=== PATIENT | male | born 1955 | race American Indian/Alaskan Native ===

== ENCOUNTER 2017-11-15 07:59 | Inpatient (IN) | payer MEDICARE ==
--- NOTE | 2017-11-15 08:57 | C.PDOC ---
History Of Present Illness 62-year-old male, PMHx includes Diabetes (compliant with medication), presents to the emergency department with complaints of one-week duration of worsening right fifth toe infection. Patient is referred by Dr Manriquez for admission, and possible surgery. States "otherwise I feel fine." Patient denies trauma, increasing redness, fever, or any other associated symptoms. No prior antibiotic treatment for current symptoms. No other complaints at this time. PMD Kojo Peng MD. WORSENING R 5TH TOE INFXN X [address] MANRIQUEZ FOR ADMISSION, POSSIBLE O.R. PT DENIES TRAUMA, INCR REDNESS. NO FEVER, DENIES OTHER ASSOC SX "OTHERWISE I FEEL FINE". NO PRIOR ABX TX FOR CURRENT SX. COMPLIANT W DM MEDS EXAM NAD EXT R FOOT +SWELLING/EDEMA 5TH TOE. NO DEFORM. MIN LOCAL TEND SKIN +DFU R 5TH TOE. NAIL MISSING. REMAINDER NEG Time Seen by Provider: 11/15/17 08:28 Chief Complaint (Nursing): Lower Extremity Problem/Injury Past Medical History Reviewed: Historical Data, Nursing Documentation, Vital Signs Vital Signs: Last Vital Signs Temp 98.2 F 11/16/17 08:29 Pulse 87 11/16/17 08:29 Resp 20 11/16/17 08:29 BP 159/95 H 11/16/17 08:29 Pulse Ox 95 11/16/17 08:29 - Medical History PMH: HIV, HTN, Hypercholesterolemia Surgical History: Appendectomy, CABG Family History: States: Unknown Family Hx - Social History Hx Alcohol Use: No Hx Substance Use: No - Immunization History Hx Tetanus Toxoid Vaccination: No Hx Influenza Vaccination: No Hx Pneumococcal Vaccination: No Review Of Systems Except As Marked, All Systems Reviewed And Found Negative. Constitutional: Negative for: Fever, Chills Cardiovascular: Negative for: Chest Pain Respiratory: Negative for: Shortness of Breath Musculoskeletal: Positive for: Foot Pain Neurological: Negative for: Weakness, Numbness Physical Exam - Physical Exam Appears: Non-toxic, No Acute Distress Skin: Warm, Dry, Other ( +DFU R 5TH TOE. NAIL MISSING.) Head: Normacephalic Eye(s): bilateral: Normal Inspection, PERRL Nose: Normal Lips: Normal Appearing Neck: Normal ROM Chest: Symmetrical Cardiovascular: Rhythm Regular, No Murmur Respiratory: Normal Breath Sounds, No Accessory Muscle Use Extremity: Normal ROM Neurological/Psych: Oriented x3, Normal Speech ED Course And Treatment - Laboratory Results Result Diagrams: 11/15/17 09:25 11/15/17 09:25 O2 Sat by Pulse Oximetry: 98 Pulse Ox Interpretation: Normal - Radiology CXR: Interpreted by Me CXR Interpretation: Yes: No Acute Disease - Other Rad R FOOT X-Ray: Interpreted by Me (NEG) Progress - Re-Evaluation Re-evaluation Note: 11/15/17 09:05 D/W PODIATRY RESIDENT WILL EVAL IN ER PENDING CALLBACK PMD 11/15/17 09:30 d/w dr peng WILL ADMIT. RECOMMENDS ZOSYN 11/15/17 09:[address] PENG, ADMIT PT UNDER DR Sara COMBS. STATES ALREADY NOTIFIED DR Saar COMBS ABOUT ADMISSION. - Data Reviewed Data Reviewed: Lab, Diagnostic imaging, EKG, Old records - Continuity of Care Discussed patient case with:: Patient, PMD Discussed pt. case with [facility] consultant/specialty: Podiatry Medical Decision Making Medical Decision Making: Impression 62y/o M comes in for evaluation of worsening infection of right foot. Plan: * EKG * BMP * CBC * Chest X-Ray * Blood/Wound Culture * XR R Foot * Reassess and Disposition Disposition Counseled Patient/Family Regarding: Studies Performed, Diagnosis - Disposition Disposition: HOSPITALIZED Disposition Time: 09:31 Condition: STABLE - POA Present On Arrival: Poor Glycemic Control, Pressure Ulcer - Clinical Impression Clinical Impression: Diabetic foot ulcer, Cellulitis - Scribe Statement The provider has reviewed the documentation as recorded by the Scribe (Micheal Edmondson) All medical record entries made by the Scribe were at my direction and personally dictated by me. I have reviewed the chart and agree that the record accurately reflects my personal performance of the history, physical exam, medical decision making, and the department course for this patient. I have also personally directed, reviewed, and agree with the discharge instructions and disposition. Decision To Admit - Pt Status Changed To: Hospital Disposition Of: Inpatient - Admit Certification Admit to Inpatient:: After my assessment, the patient will require hospitalization for at least two midnights. This is because of the severity of symptoms shown, intensity of services needed, and/or the medical risk in this patient being treated as an outpatient. - InPatient: Physician Admission Certification: I certify that this patient requires 2 or more midnights of care for the following reason:: SEE NOTE - . Bed Request Type: Regular Admitting Physician: Kojo Peng Patient Diagnosis: Diabetic foot ulcer, Cellulitis
[2017-11-15 09:28] LABS: BASO # 0.1 K/uL (0.0-0.2); BASO % 0.7 % (0.0-2.0); EOS # 0.1 K/uL (0.0-0.7); EOS % 0.7 % (0.0-4.0); HEMOGLOBIN 14.6 g/dL (12.0-18.0); LYMPH # 1.5 K/uL (1.0-4.3); LYMPH % 20.8 % (20.0-40.0); MEAN CORPUSCULAR HGB CONC 35.5 g/dL (33.0-37.0); MEAN PLATELET VOLUME 7.4 fL (7.2-11.7); MONO # 0.6 K/uL (0.0-0.8); MONO % 8.1 % (0.0-10.0); NEUT # 5.1 K/uL (1.8-7.0); NEUT % 69.7 % (50.0-75.0); RBC 3.83 Mil/uL (4.40-5.90); RED CELL DISTRIBUTION WIDTH 12.5 % (11.5-14.5); WHITE BLOOD COUNT 7.3 K/uL (4.8-10.8)
[2017-11-15 09:43] LABS: BLOOD UREA NITROGEN 23 mg/dL (9-20); CALCIUM 9.9 mg/dl (8.6-10.4); GFR AFRICAN-AMERICAN > 60; GFR NON-AFRICAN AMERICAN > 60
--- NOTE | 2017-11-15 09:55 | RAD ---
HISTORY: SOB COMPARISON: No prior. TECHNIQUE: Chest PA and lateral FINDINGS: LUNGS: No active pulmonary disease. PLEURA: No significant pleural effusion identified. No pneumothorax apparent. CARDIOVASCULAR: The cardiac silhouette is normal in size. There are post sternotomy changes and surgical changes suggestive of prior cardiac bypass. OSSEOUS STRUCTURES: No significant abnormalities. VISUALIZED UPPER ABDOMEN: Normal. OTHER FINDINGS: None. IMPRESSION: No active disease.
--- NOTE | 2017-11-15 09:59 | RAD ---
PROCEDURE: Right Foot Radiographs. HISTORY: DFU R 5TH TOE COMPARISON: None. FINDINGS: BONES: There is no evidence of acute fracture. There is a old fracture and deformity at the proximal portion of the 5th metatarsal bone. JOINTS: Mild a degenerative changes. SOFT TISSUES: There is soft tissue swelling seen at the lateral aspect of the mid and distal right foot. OTHER FINDINGS: None. IMPRESSION: No evidence of acute fracture or dislocation. No evidence of bony erosion to suggest acute osteomyelitis. Soft tissue swelling. Old fracture deformity at the proximal portion of 5th metatarsal bone.
--- NOTE | 2017-11-15 12:37 | CP.PCM.CON ---
History of Present Illness - History of Present Illness History of Present Illness: Vascular surgery consult note for Dr. Maxine Martin, PGY-1 Pt S & E at bedside with attending. 62M w/PMH sig for DM consulted for non healing wound on right foot. Pt reports blister formation on 5th toe approximately a week ago, which subsequently popped. Was evaluated by PMD with recommendations for wound care. Wound is not healing, reports slight pain to area. Pt admits to having similar type of wound on hallux of right foot. Denies other symptoms/complaints. PMH: DM, hx of prostate CA PSH: CABG, appendectomy All: NKDA SH: Denies ETOH, tobacco or illicit drug use PMD: Dr. Peng Outpatient Podiatry: Dr. Manriquez Review of Systems - Review of Systems All systems: reviewed and no additional remarkable complaints except (ROS negative excluding HPI.) - Constitutional Constitutional: absent: Chills, Fatigue - Cardiovascular Cardiovascular: absent: Chest Pain - Respiratory Respiratory: absent: Cough - Gastrointestinal Gastrointestinal: absent: Abdominal Pain - Genitourinary Genitourinary: absent: Change in Urinary Stream - Musculoskeletal Musculoskeletal: absent: Back Pain - Integumentary Integumentary: Non-Healing Lesions - Neurological Neurological: absent: Numbness, Tingling Past Patient History - Past Social History Smoking Status: Never Smoked - CARDIAC Hx Hypercholesterolemia: Yes Hx Hypertension: Yes - ENDOCRINE/METABOLIC Hx Diabetes Mellitus Type 2: Yes - HEMATOLOGICAL/ONCOLOGICAL Hx Human Immunodeficiency Virus (HIV): Yes - PSYCHIATRIC Hx Substance Use: No - SURGICAL HISTORY Hx Appendectomy: Yes Hx Coronary Artery Bypass Graft: Yes Meds Allergies/Adverse Reactions: Allergies Allergy/AdvReac Type Severity Reaction Status Date / Time No Known Allergies Allergy Unverified 11/15/17 08:20 Physical Exam - Constitutional Appears: Non-toxic, No Acute Distress - Head Exam Head Exam: ATRAUMATIC, NORMAL INSPECTION, NORMOCEPHALIC - Eye Exam Eye Exam: EOMI, Normal appearance - ENT Exam ENT Exam: Mucous Membranes Moist, Normal Exam - Neck Exam Neck exam: Positive for: Full Rom, Normal Inspection - Respiratory Exam Respiratory Exam: NORMAL BREATHING PATTERN - Cardiovascular Exam Cardiovascular Exam: REGULAR RHYTHM - Extremities Exam Extremities exam: Negative for: tenderness Additional comments: Pedal pulses (DP, TP) absent bilaterally, femoral pulses palpable bilaterally, popliteal pulse absent on right lower extremity Right foot with dressing in place over foot- clean/dry/intact - Neurological Exam Neurological exam: Alert, CN II-XII Intact, Oriented x3 - Psychiatric Exam Psychiatric exam: Normal Affect, Normal Mood - Skin Skin Exam: Dry, Normal Color, Warm Results - Vital Signs Recent Vital Signs: Last Vital Signs Temp 98.5 F 11/15/17 08:20 Pulse 77 11/15/17 11:47 Resp 16 11/15/17 11:47 BP 155/85 H 11/15/17 11:47 Pulse Ox 100 11/15/17 11:47 - Labs Result Diagrams: 11/15/17 09:25 11/15/17 09:25 Labs: Laboratory Results - last 24 hr 11/15/17 11/15/17 09:25 09:25 WBC 7.3 RBC 3.83 L Hgb 14.6 Hct 41.0 MCV 107.0 H MCH 38.0 H MCHC 35.5 RDW 12.5 Plt Count 302 MPV 7.4 Neut % (Auto) 69.7 Lymph % (Auto) 20.8 [place] % (Auto) 8.1 Eos % (Auto) 0.7 Baso % (Auto) 0.7 Neut # (Auto) 5.1 Lymph # (Auto) 1.5 [place] # (Auto) 0.6 Eos # (Auto) 0.1 Baso # (Auto) 0.1 Differential Comment Sodium 143 Potassium 4.1 Chloride 102 Carbon Dioxide 30 Anion Gap 15 BUN 23 H Creatinine 1.2 Est GFR ( Amer) > 60 Est GFR (Non-Af Amer) > 60 Random Glucose 109 Calcium 9.9 Assessment & Plan - Assessment and Plan (Free Text) Assessment: 62M w/PMH sig for DM with non healing wound of right foot Plan: Duplex U/s of LE CTA Further mgmt as per primary team Further recommendations pending imaging results DW attending Veronica, PGY-1 - Date & Time Date: 11/15/17 Time: 12:38
--- NOTE | 2017-11-15 13:35 | CP.PCM.CON ---
History of Present Illness - History of Present Illness History of Present Illness: Consult note - Dr. Manriquez 62 year old male patient with PMHx of DM, prostate CA was seen and evaluated at bedside for right 5th digit wound. Patient reports that there was a blister about a week ago which popped and turned into what it looks like today. Patient reports that he has not seen any improvement in the healing process of the wound since then. Patient denies of having any recent F/N/V/C/SOB/CP/headache. Patient reports that he has a little pain to his digit today. Patient denies of any other pedal complains at this time. PMHx: DM, hx of prostate CA PSHx: CABG, appendectomy All: NKDA SHx: Denies ETOH, tobacco or illicit drug use Review of Systems - Constitutional Constitutional: As Per HPI Past Patient History - Past Social History Smoking Status: Never Smoked - CARDIAC Hx Hypercholesterolemia: Yes Hx Hypertension: Yes - ENDOCRINE/METABOLIC Hx Diabetes Mellitus Type 2: Yes - HEMATOLOGICAL/ONCOLOGICAL Hx Human Immunodeficiency Virus (HIV): Yes - PSYCHIATRIC Hx Substance Use: No - SURGICAL HISTORY Hx Appendectomy: Yes Hx Coronary Artery Bypass Graft: Yes Meds Allergies/Adverse Reactions: Allergies Allergy/AdvReac Type Severity Reaction Status Date / Time No Known Allergies Allergy Unverified 11/15/17 08:20 - Medications Medications: Current Medications Amantadine HCl (Amantadine 100 Mg Cap) 100 mg PO DAILY [facility] Amlodipine Besylate (Norvasc) 10 mg PO DAILY [facility] Aspirin (Ecotrin) 81 mg PO DAILY [facility] Ergocalciferol (Drisdol 50,000 Intl Units Cap) 1 cap PO Q7D [facility] Home Med (Home Med) 1 unit PO DAILY [facility] Insulin Aspart (Novolog) 0 unit SC ACHS [facility] PRN Reason: Protocol Losartan Potassium (Cozaar) 100 mg PO DAILY [facility] Metoprolol Tartrate (Lopressor) 50 mg PO DAILY [facility] Pantoprazole Sodium (Protonix Ec Tab) 40 mg PO DAILY [facility] Rosuvastatin Calcium (Crestor) 5 mg PO HS [facility] Physical Exam - Constitutional Appears: Well, Non-toxic, No Acute Distress - Extremities Exam Additional comments: Right LE focused exam: VASC: DP/PT pulses are palpable are non-palpable. Cap refill time appears little sluggish and is approx. 4 sec, Skin temperature warm to cool from proximal to distal. mild non-pitting edema noted at the distal aspect of the foot on the right DERM: wound on the dorsal and distal aspect of the 5th digit on the right measuring approx. the whole size of the digit, mild serous drainage accompanied with mild purulence, wound base is 50% fibrotic and 50% grannular, no tunneling , no probe to bone, no malodor, van-wound erythema noted on extending proximally to the level of MTPJ, van-wound maceration noted at the distal aspect of the digit NEURO: Epicritic and protective sensation mildly diminished ORTHO: mild tenderness on palpation of the right 5th digit - Neurological Exam Neurological exam: Alert, Oriented x3 - Psychiatric Exam Psychiatric exam: Normal Affect, Normal Mood Results - Vital Signs Recent Vital Signs: Last Vital Signs Temp 98.5 F 11/15/17 08:20 Pulse 77 11/15/17 11:47 Resp 16 11/15/17 11:47 BP 155/85 H 11/15/17 11:47 Pulse Ox 100 11/15/17 11:47 - Labs Result Diagrams: 11/15/17 09:25 11/15/17 09:25 Labs: Laboratory Results - last 24 hr 11/15/17 11/15/17 09:25 09:25 WBC 7.3 RBC 3.83 L Hgb 14.6 Hct 41.0 MCV 107.0 H MCH 38.0 H MCHC 35.5 RDW 12.5 Plt Count 302 MPV 7.4 Neut % (Auto) 69.7 Lymph % (Auto) 20.8 [place] % (Auto) 8.1 Eos % (Auto) 0.7 Baso % (Auto) 0.7 Neut # (Auto) 5.1 Lymph # (Auto) 1.5 [place] # (Auto) 0.6 Eos # (Auto) 0.1 Baso # (Auto) 0.1 Differential Comment Sodium 143 Potassium 4.1 Chloride 102 Carbon Dioxide 30 Anion Gap 15 BUN 23 H Creatinine 1.2 Est GFR ( Amer) > 60 Est GFR (Non-Af Amer) > 60 Random Glucose 109 Calcium 9.9 Assessment & Plan - Assessment and Plan (Free Text) Assessment: 62 year old male patient with PMHx of DM, prostate CA was evaluated for right 5th digit wound. Plan: Patient seen and evaluated in ED with attending Dr. Manriquez Labs, vitals and charts reviewed - afebrile, no leukocytosis X-rays of the foot ordered/reviewed - increase in soft tissue density accompanied with cortical erosion at the level of IPJ consistent with possible OM Wound cultures taken - pending ID consult - Recommendations from Dr. Peng appreciated Vascular consult - Dr. Sawant Arterial duplex ordered - pending Podiatry will hold any surgical intervention at this time and will follow vascular recommendations Wound cleaned with saline and dressing applied using Betadine, DSD Thank you for the podiatry consult and allowing to take part in patient care Podiatry to follow patient while in-house - Date & Time Date: 11/15/17 Time: 09:30
[2017-11-15] MEDS ORDERED: Iodixanol 320 mg/ml 150 ml Bottle IV ONE (14:06)
--- NOTE | 2017-11-15 15:21 | CT ---
PROCEDURE: CT Angiography Abdomen, Pelvis and Lower Extremity with Contrast HISTORY: non healing wound of right foot COMPARISON: None. TECHNIQUE: Technique: CT angiography of the abdomen, pelvis and bilateral lower extremities performed in the arterial phase of enhancement. Coronal and sagittal reformats, and well as rotating MIP images of the vessels generated at the workstation. Intravenous contrast dose: 150 mL Visipaque Radiation dose: Total exam DLP = 1812.17 mGy-cm. This CT exam was performed using one or more of the following dose reduction techniques: Automated exposure control, adjustment of the mA and/or kV according to patient size, and/or use of iterative reconstruction technique. FINDINGS: CT ANGIOGRAPHY: ABDOMINAL AORTA:: Mild diffuse atherosclerotic disease is noted without evidence of significant stenosis or aneurysmal changes. MAJOR AORTIC BRANCHES: Celiac [place]: Unremarkable. Superior mesenteric artery: Unremarkable. Inferior mesenteric artery: Unremarkable. Renal arteries: Unremarkable. PELVIC ARTERIES: Right Common Iliac: No evidence of significant stenosis. Right External Iliac: No evidence of significant stenosis. Right Internal Iliac: The right internal iliac artery is patent demonstrate moderate atherosclerotic disease P Left Common Iliac: No significant stenosis. Left External Iliac: No significant stenosis noted. Left Internal Iliac: Unremarkable. RIGHT LOWER EXTREMITY ARTERIES: Right Common Femoral: Mild atherosclerotic disease without evidence of significant stenosis Right Superficial Femoral: Moderate atherosclerotic disease associated with foci of mural thickening and foci of mild less than 50 percent stenosis at the origin and in the distal portion of the right superficial femoral artery. Right Profunda Femoris: Patent demonstrate diffuse atherosclerotic disease. Right Popliteal:Patent demonstrate [id number] atherosclerotic disease and small foci of mural thickening. Focal mild less than 50 percent stenosis noted at the midportion of the right popliteal artery. Focal approximately 50 percent stenosis seen at the distal right popliteal artery. 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 Reconstitution of the anterior tibial artery at the mid to distal right Neumann and continuous to the right foot Right Tibioperoneal Trunk: Patent demonstrate moderate atherosclerotic disease and moderate size foci of mural thickening Right Posterior Tibial: Occlusion of the right posterior tibial artery at the mid leg. Right Peroneal: Occlusion at the distal portion of the right peroneal artery. Right dorsalis pedis : The right dorsalis pedis artery seen in the proximal portion of the right foot up to the level of tarsal bones. LEFT LOWER EXTREMITY ARTERIES: Left Common Femoral: Moderate atherosclerotic disease and focal approximately 50- 60 percent stenosis noted at the proximal and mid portion of the left common femoral artery Left Superficial Femoral: Patent demonstrate [id number] atherosclerotic disease. Left Profunda Femoris: Patent demonstrate moderate atherosclerotic disease. Left Popliteal: Focal/ segmental mild approximately 50 percent stenosis at the proximal right popliteal artery. Left Anterior Tibial: Occlusion of the left anterior tibial artery shortly after its origin. Left Tibioperoneal Trunk: Demonstrates moderate to severe atherosclerotic disease and diffuse mural thickening with diffuse approximately 50 percent stenosis. Left Posterior Tibial: Focal severe approximately 70 percent stenosis at the origin of the left posterior tibial artery. Left Peronea: Focal approximately 17- 75 percent stenosis at the origin of the peroneal artery. Left Dorsalis pedis: No evidence of contrast opacification at the left dorsalis pedis NON-ANGIOGRAPHIC ASPECT OF THE EXAM: LOWER THORAX: No evidence of acute pathology. Cardiomegaly is noted. LIVER: There is 1.6 centimeter peripheral enhancing lesion at the anterior portion of right liver do may represent benign hemangioma. Heterogeneous nodular enhancement of the liver is noted. GALLBLADDER AND BILE DUCTS: Unremarkable. PANCREAS: Unremarkable. No gross lesion or ductal dilatation. SPLEEN: Unremarkable. ADRENALS: Unremarkable. No mass. KIDNEYS AND URETERS: Unremarkable. No hydronephrosis. No solid mass. STOMACH AND BOWEL: No evidence of acute pathology in the GI system. APPENDIX: No evidence of appendicitis. PERITONEUM: Unremarkable. No free fluid. No free air. LYMPH NODES: Unremarkable. No enlarged lymph nodes. BLADDER: Mildly distended urinary bladder. REPRODUCTIVE: There are multiple seeds in the [id number] enlarged prostate. Heterogeneous enhancement of the prostate is noted. BONES: No acute fracture. OTHER FINDINGS: None. IMPRESSION: Moderate atherosclerotic disease more prominent below the knees. 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 Occlusion of the right posterior tibial artery at the mid to distal leg. Foci of mild stenosis seen at the left common femoral artery bilateral superficial femoral arteries and bilateral popliteal arteries. Occlusion of the left anterior tibial artery shortly after its origin.
[2017-11-15] MEDS: (Novolog) Insulin Aspart, Recombinant 100 u/ml 10 ml vial SC SCH ×2 (16:55→22:19)
[2017-11-15] MEDS: Aztreonam 1 GM in Sodium Chloride 0.9% 100 ML IVPB SCH (18:59)
[2017-11-15] MEDS: Enoxaparin 30 mg Syringe SC SCH (22:17)
[2017-11-16] MEDS: Aztreonam 1 GM in Sodium Chloride 0.9% 100 ML IVPB SCH ×3 (01:43→17:33)
--- NOTE | 2017-11-16 02:25 | HP ---
HISTORY OF PRESENT ILLNESS: This is a 62-year-old black male came to the emergency room with history of right lateral toe infection and ulcer. Swelling present. Cellulitis present. The patient had this problem for the last one week. The patient is compliant to the medications. The patient denies having any fever or chills. No known injury to the toe. The patient was evaluated by Dr. Manriquez and was referred for admission and possible surgery. PAST MEDICAL HISTORY: History of HIV positive, hypertension, hypercholesterolemia, diabetes. The patient has appendectomy done in the past. ALLERGIES: THE PATIENT IS ALLERGIC TO PENICILLIN. MEDICATIONS: The patient's medications are reviewed by me. REVIEW OF SYSTEMS: CARDIOVASCULAR: Negative for chest pain. RESPIRATORY: Negative for shortness of breath. GI: Negative for nausea, vomiting, abdominal pain. [employer]: No focal neurological complaints offered. : No urinary complaints. EXTREMITIES: Right little toe has swelling, infection, mild discharge, and bleeding. All other systems are negative. PHYSICAL EXAMINATION: GENERAL: On admission, this is a 62-year-old black male, alert, oriented, comfortable. VITAL SIGNS: Temperature 98.5, pulse 83, respirations 16, blood pressure 163/89 mmHg, pulse ox is 98% on room air. HEENT: Normal. JVP is flat. Carotids, no bruit. LUNGS: No rales, no wheezing. HEART: S1, S2, normal. No gallop, no murmur. ABDOMEN: Soft, nontender. No organomegaly. CENTRAL NERVOUS SYSTEM: No focal neurological deficits. Right little toe has infection and swelling and mild discharge. IMPRESSION: Right foot ulcer, diabetic. Cellulitis. Human immunodeficiency virus positive. Hypertension. PLAN: The patient will be admitted to the floor. We will get consult with Dr. Peng and Dr. Manriquez, and IV antibiotic. Other workup as needed. Marcia Mccarthy MD
--- NOTE | 2017-11-16 06:01 | CP.PCM.PN ---
Subjective - Date & Time of Evaluation Date of Evaluation: 11/16/17 Time of Evaluation: 07:30 - Subjective Subjective: Vascular surgery progress note for Dr. Maxine Martin, PGY-1 Pt S & E at bedside. Pt reports minimal R foot pain. Denies N & V, F & C, other complaints. Objective - Vital Signs/Intake and Output Vital Signs (last 24 hours): Temp Pulse Resp BP Pulse Ox 98.5 F 87 20 150/88 97 11/16/17 00:00 11/16/17 00:00 11/16/17 00:00 11/16/17 00:00 11/16/17 00:00 - Medications Medications: Current Medications Amantadine HCl (Amantadine 100 Mg Cap) 100 mg PO DAILY [facility] Amlodipine Besylate (Norvasc) 10 mg PO DAILY [facility] Aspirin (Ecotrin) 81 mg PO DAILY [facility] Enoxaparin Sodium (Lovenox) 30 mg SC 1000,2200 [facility] Last Admin: 11/15/17 22:17 Dose: 30 mg Ergocalciferol (Drisdol 50,000 Intl Units Cap) 1 cap PO Q7D [facility] Home Med (Home Med) 1 unit PO DAILY [facility] Aztreonam 1 gm/ Sodium (Chloride) 100 mls @ 200 mls/hr IVPB Q8H [facility] Last Admin: 11/16/17 01:43 Dose: 200 mls/hr Clindamycin Phosphate 600 mg/ (Sodium Chloride) 54 mls @ 100 mls/hr IVPB Q8H [facility] Last Admin: 11/16/17 01:04 Dose: 100 mls/hr Insulin Aspart (Novolog) 0 unit SC ACHS [facility] PRN Reason: Protocol Last Admin: 11/15/17 22:19 Dose: Not Given Losartan Potassium (Cozaar) 100 mg PO DAILY [facility] Metoprolol Tartrate (Lopressor) 50 mg PO DAILY [facility] Pantoprazole Sodium (Protonix Ec Tab) 40 mg PO DAILY [facility] Pneumococcal Polyvalent Vaccine (Pneumovax 23 Vaccine) 0.5 ml IM .ONCE ONE Stop: 11/17/17 10:01 Rosuvastatin Calcium (Crestor) 5 mg PO HS [facility] Last Admin: 11/15/17 22:17 Dose: 5 mg - Labs Labs: 11/15/17 09:25 11/15/17 09:25 - Constitutional Appears: Non-toxic, No Acute Distress - Head Exam Head Exam: ATRAUMATIC, NORMAL INSPECTION, NORMOCEPHALIC - Eye Exam Eye Exam: EOMI, Normal appearance - ENT Exam ENT Exam: Mucous Membranes Moist, Normal Exam - Neck Exam Neck Exam: Full ROM, Normal Inspection - Respiratory Exam Respiratory Exam: NORMAL BREATHING PATTERN - Cardiovascular Exam Cardiovascular Exam: REGULAR RHYTHM - GI/Abdominal Exam GI & Abdominal Exam: Soft. absent: Tenderness - Extremities Exam Extremities Exam: absent: Normal Inspection (R foot with dressing in place- clean/dry/intact), Tenderness Additional comments: unable to appreciated popliteal pulses bilaterally - Neurological Exam Neurological Exam: Alert, Awake, CN II-XII Intact, Oriented x3 - Psychiatric Exam Psychiatric exam: Normal Affect, Normal Mood - Skin Skin Exam: Dry, Intact, Normal Color, Warm Assessment and Plan - Assessment and Plan (Free Text) Assessment: 62M w/PMH sig for DM with non healing wound of right foot Plan: FU Duplex U/S of LE CTA w/Mod atherosclerotic diz more prom below knees.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 Occlusion of R PT at mid to distal leg. Foci of mild stenosis at L [employer], B/L SFA & B/L popliteal. Occlusion of L AT shortly after origin. Further recommendations pending Duplex results Further mgmt as per primary team Will ELOY attending Veronica, PGY-1
[2017-11-16] MEDS: (Novolog) Insulin Aspart, Recombinant 100 u/ml 10 ml vial SC SCH ×4 (08:10→21:58)
[2017-11-16] MEDS: Pantoprazole 40 mg EC Tab PO SCH (10:03)
[2017-11-16] MEDS: Enoxaparin 30 mg Syringe SC SCH ×2 (10:03→21:58)
--- NOTE | 2017-11-16 13:46 | CP.PCM.PN ---
Subjective - Date & Time of Evaluation Date of Evaluation: 11/16/17 Time of Evaluation: 10:50 - Subjective Subjective: Progress note - Dr. Manriquez 62 year old male patient with PMHx of DM, prostate CA was seen and evaluated at bedside for right 5th digit wound. Patient is AAOx3 and is in NAD. Patient reports of no acute overnight events. Patient denies of having any recent F/N/V/ C/SOB/CP/headache. Patient reports that he has a little pain to his digit today. Patient denies of any other pedal complains at this time. Objective - Vital Signs/Intake and Output Vital Signs (last 24 hours): Temp Pulse Resp BP Pulse Ox 98.2 F 87 20 159/95 H 98 11/16/17 08:29 11/16/17 08:29 11/16/17 08:29 11/16/17 08:29 11/16/17 11:18 Intake and Output: 11/16/17 11/16/17 06:59 18:59 Intake Total 440 Balance 440 - Medications Medications: Current Medications Amantadine HCl (Amantadine 100 Mg Cap) 100 mg PO DAILY [facility] Last Admin: 11/16/17 11:29 Dose: 100 mg Amlodipine Besylate (Norvasc) 10 mg PO DAILY [facility] Last Admin: 11/16/17 10:03 Dose: 10 mg Aspirin (Ecotrin) 81 mg PO DAILY [facility] Last Admin: 11/16/17 10:03 Dose: 81 mg Enoxaparin Sodium (Lovenox) 30 mg SC 1000,2200 [facility] Last Admin: 11/16/17 10:03 Dose: 30 mg Ergocalciferol (Drisdol 50,000 Intl Units Cap) 1 cap PO Q7D [facility] Home Med (Home Med) 1 unit PO DAILY [facility] Aztreonam 1 gm/ Sodium (Chloride) 100 mls @ 200 mls/hr IVPB Q8H [facility] Last Admin: 11/16/17 10:03 Dose: 200 mls/hr Clindamycin Phosphate 600 mg/ (Sodium Chloride) 54 mls @ 100 mls/hr IVPB Q8H [facility] Last Admin: 11/16/17 08:46 Dose: 100 mls/hr Insulin Aspart (Novolog) 0 unit SC ACHS [facility] PRN Reason: Protocol Last Admin: 11/16/17 12:44 Dose: Not Given Losartan Potassium (Cozaar) 100 mg PO DAILY [facility] Last Admin: 11/16/17 10:03 Dose: 100 mg Metoprolol Tartrate (Lopressor) 50 mg PO DAILY [facility] Last Admin: 11/16/17 10:03 Dose: 50 mg Pantoprazole Sodium (Protonix Ec Tab) 40 mg PO DAILY [facility] Last Admin: 11/16/17 10:03 Dose: 40 mg Pneumococcal Polyvalent Vaccine (Pneumovax 23 Vaccine) 0.5 ml IM .ONCE ONE Stop: 11/17/17 10:01 Rosuvastatin Calcium (Crestor) 5 mg PO HS [facility] Last Admin: 11/15/17 22:17 Dose: 5 mg - Labs Labs: 11/15/17 09:25 11/15/17 09:25 - Constitutional Appears: Well, Non-toxic, No Acute Distress - Extremities Exam Additional comments: Right LE focused exam: VASC: DP/PT pulses are palpable are non-palpable. Cap refill time appears little sluggish and is approx. 4 sec, Skin temperature warm to cool from proximal to distal. mild non-pitting edema noted at the distal aspect of the foot on the right DERM: wound on the dorsal and distal aspect of the 5th digit on the right measuring approx. the whole size of the digit, mild serous drainage accompanied with mild purulence, wound base is 50% fibrotic and 50% grannular, no tunneling , + probe to bone from the plantar aspect, no malodor, van-wound erythema noted on extending proximally to the level of MTPJ, van-wound maceration noted at the distal aspect of the digit NEURO: Epicritic and protective sensation mildly diminished ORTHO: mild tenderness on palpation of the right 5th digit - Neurological Exam Neurological Exam: Alert, Awake, Oriented x3 - Psychiatric Exam Psychiatric exam: Normal Affect, Normal Mood Assessment and Plan - Assessment and Plan (Free Text) Assessment: 62 year old male patient with PMHx of DM, prostate CA was evaluated for right 5th digit wound. Plan: Patient seen and evaluated in ED with attending Dr. Manriquez Labs, vitals and charts reviewed - afebrile, no leukocytosis X-rays of the foot ordered/reviewed - increase in soft tissue density accompanied with cortical erosion at the level of IPJ consistent with possible OM Wound cultures taken - Gram negative Rods - Prelim ID consult - Recommendations from Dr. Peng appreciated Vascular consult - Dr. Sawant Arterial duplex ordered - pending Podiatry will hold any surgical intervention at this time and will follow vascular recommendations Wound cleaned with saline and dressing applied using Betadine, DSD Podiatry to follow patient while in-house
--- NOTE | 2017-11-16 17:19 | CP.PCM.CON ---
History of Present Illness - History of Present Illness History of Present Illness: 62-year-old male, PMHx includes Diabetes (compliant with medication), presents to the emergency department with complaints of one-week duration of worsening right fifth toe infection. Patient is referred by Dr Manriquez for admission, and possible surgery. States "otherwise I feel fine." Patient denies trauma, increasing redness, fever, or any other associated symptoms. PMH- CAD, CABG, DM, HIV/AIDS, HEP C S/P RX , PROSTATE CA S/P RT, NEUROPATHY, BPH , HTN , OA, Review of Systems - Review of Systems All systems: reviewed and no additional remarkable complaints except - Constitutional Constitutional: As Per HPI - EENT Eyes: absent: As Per HPI, Blind Spots, Blurred Vision, Change in Vision, Decreased Night Vision, Diplopia, Discharge, Dry Eye, Exophthalmos, Floaters, Irritation, Itchy Eyes, Loss of Peripheral Vision, Pain, Photophobia, Requires Corrective Lenses, Sees Flashes, Spots in Vision, Tunnel Vision, Other Visual Disturbances, Loss of Vision, Other Ears: absent: As Per HPI, Decreased Hearing, Ear Discharge, Ear Pain, Tinnitus, Abnormal Hearing, Disequilibrium, Dizziness, Other Nose/Mouth/Throat: absent: As Per HPI, Epistaxis, Nasal Congestion, Nasal Discharge, Nasal Obstruction, Nasal Trauma, Nose Pain, Post Nasal Drip, Sinus Pain, Sinus Pressure, Bleeding Gums, Change in Voice, Dental Pain, Dry Mouth, Dysphagia, Halitosis, Hoarsness, Lip Swelling, Mouth Lesions, Mouth Pain, Odynophagia, Sore Throat, Throat Swelling, Tongue Swelling, Facial Pain, Neck Pain, Neck Mass, Other - Cardiovascular Cardiovascular: As Per HPI - Respiratory Respiratory: absent: As Per HPI, Cough, Dyspnea, Hemoptysis, Dyspnea on Exertion , Wheezing, Snoring, Stridor, Pain on Inspiration, Chest Congestion, Excessive Mucous Production, Change in Mucous Color, Pain with Coughing, Other - Gastrointestinal Gastrointestinal: absent: As Per HPI, Abdominal Pain, Belching, Bloating, Change in Bowel Habits, Change in Stool Character, Coffee Ground Emesis, Constipation, Cramping, Diarrhea, Dyspepsia, Dysphagia, Early Satiety, Excessive Flatus, Fecal Incontinence, Heartburn, Hematemesis, Hematochezia, Loose Stools, Melena, Nausea, Odynophagia, Temesmus, Vomiting, Other - Genitourinary Genitourinary: As Per HPI - Musculoskeletal Musculoskeletal: As Per HPI - Integumentary Integumentary: As Per HPI - Neurological Neurological: As Per HPI - Psychiatric Psychiatric: absent: As Per HPI, Abnormal Sleep Pattern, Anhedonia, Anxiety, Auditory Hallucinations, Behavioral Changes, Change in Appetite, Change in Libido, Confusion, Depression, Difficulty Concentrating, Hallucinations, Homicidal Ideation, Hopelessness, Irritability, Memory Loss, Mood Swings, Panic Attacks, Paranoia, Suicidal Ideation, Visual Hallucinations, Tactile Hallucinations, Other - Endocrine Endocrine: absent: As Per HPI, Change in Body Appearance, Change in Libido, Cold Intolorance, Deepening of Voice, Excessive Sweating, Fatigue, Flushing, Heat Intolorance, Increase in Ring/Shoe/Hat Size, Palpitations, Polydipsia, Polyphagia, Polyuria, Other - Hematologic/Lymphatic Hematologic: absent: As Per HPI, Easy Bleeding, Easy Bruising, Lymphadenopathy, Other Past Patient History - Past Medical History & Family History Past Medical History?: Yes - Past Social History Smoking Status: Never Smoked - CARDIAC Hx Hypercholesterolemia: Yes Hx Hypertension: Yes - ENDOCRINE/METABOLIC Hx Diabetes Mellitus Type 2: Yes - HEMATOLOGICAL/ONCOLOGICAL Hx Human Immunodeficiency Virus (HIV): Yes - MUSCULOSKELETAL/RHEUMATOLOGICAL Hx Falls: No - PSYCHIATRIC Hx Substance Use: No - SURGICAL HISTORY Hx Appendectomy: Yes Hx Coronary Artery Bypass Graft: Yes Meds Allergies/Adverse Reactions: Allergies Allergy/AdvReac Type Severity Reaction Status Date / Time Penicillins Allergy ITCHING Verified 11/15/17 15:41 - Medications Medications: Current Medications Amantadine HCl (Amantadine 100 Mg Cap) 100 mg PO DAILY [facility] Last Admin: 11/16/17 11:29 Dose: 100 mg Amlodipine Besylate (Norvasc) 10 mg PO DAILY [facility] Last Admin: 11/16/17 10:03 Dose: 10 mg Aspirin (Ecotrin) 81 mg PO DAILY [facility] Last Admin: 11/16/17 10:03 Dose: 81 mg Enoxaparin Sodium (Lovenox) 30 mg SC 1000,2200 [facility] Last Admin: 11/16/17 10:03 Dose: 30 mg Ergocalciferol (Drisdol 50,000 Intl Units Cap) 1 cap PO Q7D [facility] Home Med (Home Med) 1 unit PO DAILY [facility] Aztreonam 1 gm/ Sodium (Chloride) 100 mls @ 200 mls/hr IVPB Q8H [facility] Last Admin: 11/16/17 10:03 Dose: 200 mls/hr Clindamycin Phosphate 600 mg/ (Sodium Chloride) 54 mls @ 100 mls/hr IVPB Q8H [facility] Last Admin: 11/16/17 16:33 Dose: 100 mls/hr Insulin Aspart (Novolog) 0 unit SC [facility] PRN Reason: Protocol Last Admin: 11/16/17 12:44 Dose: Not Given Losartan Potassium (Cozaar) 100 mg PO DAILY [facility] Last Admin: 11/16/17 10:03 Dose: 100 mg Metoprolol Tartrate (Lopressor) 50 mg PO DAILY [facility] Last Admin: 11/16/17 10:03 Dose: 50 mg Pantoprazole Sodium (Protonix Ec Tab) 40 mg PO DAILY [facility] Last Admin: 11/16/17 10:03 Dose: 40 mg Pneumococcal Polyvalent Vaccine (Pneumovax 23 Vaccine) 0.5 ml IM .ONCE ONE Stop: 11/17/17 10:01 Rosuvastatin Calcium (Crestor) 5 mg PO [facility] Last Admin: 11/15/17 22:17 Dose: 5 mg Physical Exam - Constitutional Appears: Non-toxic, Chronically Ill - Head Exam Head Exam: NORMOCEPHALIC - Eye Exam Eye Exam: PERRL. absent: Scleral icterus - ENT Exam ENT Exam: Mucous Membranes Dry, Normal Oropharynx - Neck Exam Neck exam: Negative for: Lymphadenopathy, Thyromegaly - Respiratory Exam Respiratory Exam: Decreased Breath Sounds, Clear to Auscultation Bilateral - Cardiovascular Exam Cardiovascular Exam: REGULAR RHYTHM, +S1, +S2 - GI/Abdominal Exam GI & Abdominal Exam: Diminished Bowel Sounds, Soft. absent: Tenderness - Rectal Exam Rectal Exam: Deferred - Exam Exam: NORMAL INSPECTION - Extremities Exam Extremities exam: Positive for: pedal edema, tenderness. Negative for: calf tenderness, pedal pulses present - Back Exam Back exam: absent: CVA tenderness (L), CVA tenderness (R) - Neurological Exam Neurological exam: Alert, CN II-XII Intact, Oriented x3, Reflexes Normal - Psychiatric Exam Psychiatric exam: Depressed - Skin Skin Exam: Dry Results - Vital Signs Recent Vital Signs: Last Vital Signs Temp 98.1 F 11/16/17 15:08 Pulse 75 02/18/18 15:08 Resp 20 11/16/17 15:08 BP 142/90 11/16/17 15:08 Pulse Ox 99 11/16/17 15:08 - Labs Result Diagrams: 11/15/17 09:25 11/15/17 09:25 Labs: Laboratory Results - last 24 hr 11/15/17 11/16/17 11/16/17 21:24 07:14 11:09 POC Glucose (mg/dL) 200 H 99 225 H 11/16/17 11/16/17 11/16/17 16:36 16:37 16:52 POC Glucose (mg/dL) 68 68 63 L 11/16/17 16:54 POC Glucose (mg/dL) 63 L Assessment & Plan (1) Cellulitis Status: Acute (2) Diabetic foot ulcer Status: Acute - Assessment and Plan (Free Text) Assessment: HEP C , HIV, HTN, CAD, CABG, PVD, PROSTATE CA, NEUROPATHY CONT IV RX MAY NEED AMP FOR ANGIO IN AM
--- NOTE | 2017-11-16 17:28 | CP.PCM.PN ---
Subjective - Date & Time of Evaluation Date of Evaluation: 11/16/17 Time of Evaluation: 11:10 - Subjective Subjective: CONDITION SAME. WOUND INF. GM NEG RODS. Objective - Vital Signs/Intake and Output Vital Signs (last 24 hours): Temp Pulse Resp BP Pulse Ox 98.1 F 75 20 142/90 99 11/16/17 15:08 11/16/17 15:08 11/16/17 15:08 11/16/17 15:08 11/16/17 15:08 Intake and Output: 11/16/17 11/16/17 06:59 18:59 Intake Total 440 630 Balance 440 630 - Medications Medications: Current Medications Amantadine HCl (Amantadine 100 Mg Cap) 100 mg PO DAILY [facility] Last Admin: 11/16/17 11:29 Dose: 100 mg Amlodipine Besylate (Norvasc) 10 mg PO DAILY [facility] Last Admin: 11/16/17 10:03 Dose: 10 mg Aspirin (Ecotrin) 81 mg PO DAILY [facility] Last Admin: 11/16/17 10:03 Dose: 81 mg Enoxaparin Sodium (Lovenox) 30 mg SC 1000,2200 [facility] Last Admin: 11/16/17 10:03 Dose: 30 mg Ergocalciferol (Drisdol 50,000 Intl Units Cap) 1 cap PO Q7D [facility] Home Med (Home Med) 1 unit PO DAILY [facility] Aztreonam 1 gm/ Sodium (Chloride) 100 mls @ 200 mls/hr IVPB Q8H [facility] Last Admin: 11/16/17 10:03 Dose: 200 mls/hr Clindamycin Phosphate 600 mg/ (Sodium Chloride) 54 mls @ 100 mls/hr IVPB Q8H [facility] Last Admin: 11/16/17 16:33 Dose: 100 mls/hr Insulin Aspart (Novolog) 0 unit SC ACHS [facility] PRN Reason: Protocol Last Admin: 11/16/17 12:44 Dose: Not Given Losartan Potassium (Cozaar) 100 mg PO DAILY [facility] Last Admin: 11/16/17 10:03 Dose: 100 mg Metoprolol Tartrate (Lopressor) 50 mg PO DAILY [facility] Last Admin: 11/16/17 10:03 Dose: 50 mg Pantoprazole Sodium (Protonix Ec Tab) 40 mg PO DAILY [facility] Last Admin: 11/16/17 10:03 Dose: 40 mg Pneumococcal Polyvalent Vaccine (Pneumovax 23 Vaccine) 0.5 ml IM .ONCE ONE Stop: 11/17/17 10:01 Rosuvastatin Calcium (Crestor) 5 mg PO HS [facility] Last Admin: 11/15/17 22:17 Dose: 5 mg - Labs Labs: 11/15/17 09:25 11/15/17 09:25 - Constitutional Appears: No Acute Distress, Chronically Ill - Eye Exam Eye Exam: Normal appearance, PERRL - ENT Exam ENT Exam: Normal Exam - Respiratory Exam Respiratory Exam: Clear to Ausculation Bilateral, NORMAL BREATHING PATTERN - Cardiovascular Exam Cardiovascular Exam: REGULAR RHYTHM, +S1, +S2 - GI/Abdominal Exam GI & Abdominal Exam: Soft, Normal Bowel Sounds - Back Exam Back Exam: NORMAL INSPECTION Assessment and Plan - Assessment and Plan (Free Text) Assessment: DIABETIC FOOT INF. R/O PVD. Plan: FOR POD, ID AND VASCULAR EVAL.
[2017-11-16] MEDS ORDERED: Sodium Chloride 0.9% 1,000 ML IV SCH (18:15)
[2017-11-16] MEDS: Dextrose 5%/0.9% NS 1,000 ML IV SCH (22:19)
[2017-11-17] MEDS: Aztreonam 1 GM in Sodium Chloride 0.9% 100 ML IVPB SCH ×3 (01:23→18:00)
[2017-11-17] MEDS: (Novolog) Insulin Aspart, Recombinant 100 u/ml 10 ml vial SC SCH ×4 (08:39→21:31)
[2017-11-17] MEDS: Dextrose 5%/0.9% NS 1,000 ML IV SCH ×2 (09:58→19:08)
[2017-11-17] MEDS: Ergocalciferol 50,000 Intl Units Cap PO SCH (09:59)
[2017-11-17] MEDS ORDERED: Influenza Vaccine 60 mcg/0.5 mL SYR (4YR UP) IM ONE (10:00)
[2017-11-17] MEDS ORDERED: Pneumococcal 23-Valent Vaccine IM ONE (10:00)
[2017-11-17] MEDS: Pantoprazole 40 mg EC Tab PO SCH (10:05)
[2017-11-17] MEDS: Enoxaparin 30 mg Syringe SC SCH (10:49)
--- NOTE | 2017-11-17 12:04 | CP.PCM.PN ---
Subjective - Date & Time of Evaluation Date of Evaluation: 11/17/17 Time of Evaluation: 12:02 - Subjective Subjective: PSEUDOMAS A. WOUND INF. AFEBRILE. MILD PAIN. Objective - Vital Signs/Intake and Output Vital Signs (last 24 hours): Temp Pulse Resp BP Pulse Ox 98.5 F 92 H 20 151/85 H 97 11/17/17 08:13 11/17/17 08:13 11/17/17 08:13 11/17/17 08:13 11/17/17 08:13 Intake and Output: 11/17/17 11/17/17 06:59 18:59 Intake Total 2200 Balance 2200 - Medications Medications: Current Medications Amantadine HCl (Amantadine 100 Mg Cap) 100 mg PO DAILY [facility] Last Admin: 11/17/17 09:55 Dose: Not Given Amlodipine Besylate (Norvasc) 10 mg PO DAILY [facility] Last Admin: 11/17/17 10:04 Dose: Not Given Aspirin (Ecotrin) 81 mg PO DAILY [facility] Last Admin: 11/17/17 10:00 Dose: Not Given Enoxaparin Sodium (Lovenox) 30 mg SC 1000,2200 [facility] Last Admin: 11/17/17 10:49 Dose: Not Given Ergocalciferol (Drisdol 50,000 Intl Units Cap) 1 cap PO Q7D [facility] Last Admin: 11/17/17 09:59 Dose: Not Given Home Med (Home Med) 1 unit PO DAILY [facility] Aztreonam 1 gm/ Sodium (Chloride) 100 mls @ 200 mls/hr IVPB Q8H [facility] Last Admin: 11/17/17 10:51 Dose: 200 mls/hr Clindamycin Phosphate 600 mg/ (Sodium Chloride) 54 mls @ 100 mls/hr IVPB Q8H [facility] Last Admin: 11/17/17 08:58 Dose: 100 mls/hr Dextrose/Sodium Chloride (Dextrose 5%/0.9% Ns 1000 Ml) 1,000 mls @ 100 mls/hr IV .Q10H [facility] Last Admin: 11/17/17 09:58 Dose: Not Given Insulin Aspart (Novolog) 0 unit SC ACHS [facility] PRN Reason: Protocol Last Admin: 11/17/17 11:25 Dose: Not Given Losartan Potassium (Cozaar) 100 mg PO DAILY [facility] Last Admin: 11/17/17 10:57 Dose: 100 mg Metoprolol Tartrate (Lopressor) 50 mg PO DAILY [facility] Last Admin: 11/17/17 10:57 Dose: 50 mg Pantoprazole Sodium (Protonix Ec Tab) 40 mg PO DAILY [facility] Last Admin: 11/17/17 10:05 Dose: Not Given Rosuvastatin Calcium (Crestor) 5 mg PO HS [facility] Last Admin: 11/16/17 21:59 Dose: 5 mg - Labs Labs: 11/15/17 09:25 11/15/17 09:25 - Constitutional Appears: Chronically Ill - Eye Exam Eye Exam: Normal appearance, PERRL - ENT Exam ENT Exam: Normal Exam - Respiratory Exam Respiratory Exam: Clear to Ausculation Bilateral, NORMAL BREATHING PATTERN - Cardiovascular Exam Cardiovascular Exam: REGULAR RHYTHM, +S1, +S2 - GI/Abdominal Exam GI & Abdominal Exam: Soft, Normal Bowel Sounds - Extremities Exam Additional comments: RT 5TH TOE WOUND INF. DM. HIV. - Neurological Exam Neurological Exam: Alert, Awake, CN II-XII Intact, Normal Gait, Oriented x3 - Psychiatric Exam Psychiatric exam: Normal Affect, Normal Mood Assessment and Plan - Assessment and Plan (Free Text) Assessment: WOUND INF. Plan: FOR VASCULAR EVAL. LOCAL TREATMENT. ANTIBIOTICS.
[2017-11-17] MEDS ORDERED: Iodixanol 320 MG/ML 100 ML BOTTLE IV ONE (13:42)
[2017-11-17] MEDS ORDERED: Lidocaine 2% Inj (20ml) ONE (13:46)
[2017-11-17] MEDS ORDERED: Midazolam 2 MG/2 ML VIAL ONE ×2 (13:57)
--- NOTE | 2017-11-17 14:15 | CP.PCM.PN ---
Subjective - Date & Time of Evaluation Date of Evaluation: 11/17/17 Time of Evaluation: 14:11 - Subjective Subjective: Podiatry Progress note - Dr. Manriquez 62 year old male patient with PMHx of DM, prostate CA was seen and evaluated at bedside for right 5th digit wound with attending, Dr Manriquez. Patient is AAOx3 and is in NAD. Patient reports of no acute overnight events. Denies any pain to his right 5th digit. Denies any n/v/f/c/sob/cp. Objective - Vital Signs/Intake and Output Vital Signs (last 24 hours): Temp Pulse Resp BP Pulse Ox 98.5 F 92 H 20 151/85 H 97 11/17/17 08:13 11/17/17 08:13 11/17/17 08:13 11/17/17 08:13 11/17/17 08:13 Intake and Output: 11/17/17 11/17/17 06:59 18:59 Intake Total 2200 Balance 2200 - Medications Medications: Current Medications Amantadine HCl (Amantadine 100 Mg Cap) 100 mg PO DAILY [facility] Last Admin: 11/17/17 09:55 Dose: Not Given Amlodipine Besylate (Norvasc) 10 mg PO DAILY [facility] Last Admin: 11/17/17 10:04 Dose: Not Given Aspirin (Ecotrin) 81 mg PO DAILY [facility] Last Admin: 11/17/17 10:00 Dose: Not Given Enoxaparin Sodium (Lovenox) 30 mg SC 1000,2200 [facility] Last Admin: 11/17/17 10:49 Dose: Not Given Ergocalciferol (Drisdol 50,000 Intl Units Cap) 1 cap PO Q7D [facility] Last Admin: 11/17/17 09:59 Dose: Not Given Home Med (Patient's Own Medication) 1 tab PO DAILY [facility] Aztreonam 1 gm/ Sodium (Chloride) 100 mls @ 200 mls/hr IVPB Q8H [facility] Last Admin: 11/17/17 10:51 Dose: 200 mls/hr Clindamycin Phosphate 600 mg/ (Sodium Chloride) 54 mls @ 100 mls/hr IVPB Q8H [facility] Last Admin: 11/17/17 08:58 Dose: 100 mls/hr Dextrose/Sodium Chloride (Dextrose 5%/0.9% Ns 1000 Ml) 1,000 mls @ 100 mls/hr IV .Q10H [facility] Last Admin: 11/17/17 09:58 Dose: Not Given Insulin Aspart (Novolog) 0 unit SC ACHS [facility] PRN Reason: Protocol Last Admin: 11/17/17 11:25 Dose: Not Given Losartan Potassium (Cozaar) 100 mg PO DAILY [facility] Last Admin: 11/17/17 10:57 Dose: 100 mg Metoprolol Tartrate (Lopressor) 50 mg PO DAILY [facility] Last Admin: 11/17/17 10:57 Dose: 50 mg Pantoprazole Sodium (Protonix Ec Tab) 40 mg PO DAILY [facility] Last Admin: 11/17/17 10:05 Dose: Not Given Rosuvastatin Calcium (Crestor) 5 mg PO HS [facility] Last Admin: 11/16/17 21:59 Dose: 5 mg - Labs Labs: 11/15/17 09:25 11/15/17 09:25 - Constitutional Appears: Well, Non-toxic, No Acute Distress - Extremities Exam Additional comments: Right Lower extremtiy focused exam: VASC: DP and PT pulses are non-palpable. CFT > 4 seconds to all digits, Skin temperature warm to cool from proximal to distal. mild non-pitting edema noted at the distal aspect of the foot on the right DERM: wound on the dorsal and distal aspect of the 5th digit on the right measuring approx. the whole size of the digit, mild serous drainage accompanied with mild purulence, wound base is 50% fibrotic and 50% grannular, no tunneling , + probe to bone from the plantar aspect, no malodor, van-wound erythema noted on extending proximally to the level of MTPJ, van-wound maceration noted at the distal aspect of the digit NEURO: Epicritic and protective sensation mildly diminished ORTHO: mild tenderness on palpation of the right 5th digit - Neurological Exam Neurological Exam: Alert, Awake, Oriented x3 - Psychiatric Exam Psychiatric exam: Normal Affect, Normal Mood Assessment and Plan - Assessment and Plan (Free Text) Assessment: 62 year old male with right 5th digit wound. Plan: Patient seen and evaluated in ED with attending Dr. Manriquez Labs, vitals and charts reviewed - afebrile X-rays of the foot:increase in soft tissue density accompanied with cortical erosion at the level of IPJ consistent with possible OM Wound cultures: Pseudomonas and beta hemolytic strep group B cont IV abx per ID Vascular consult - Dr. Sawant Arterial duplex ordered Podiatry will hold any surgical intervention at this time and will follow vascular recommendations Wound cleaned with saline and dressing applied using Betadine, DSD Podiatry to follow patient while in-house
--- NOTE | 2017-11-17 15:19 | CP.PCM.PN ---
Subjective - Date & Time of Evaluation Date of Evaluation: 11/17/17 Time of Evaluation: 09:00 - Subjective Subjective: seen on rounds went for angio has occlusive disease await vascular follow up cont iv antibiotics no definite OM Objective - Vital Signs/Intake and Output Vital Signs (last 24 hours): Temp Pulse Resp BP Pulse Ox 98.5 F 92 H 20 151/85 H 97 11/17/17 08:13 11/17/17 08:13 11/17/17 08:13 11/17/17 08:13 11/17/17 08:13 Intake and Output: 11/17/17 11/17/17 06:59 18:59 Intake Total 2200 Balance 2200 - Medications Medications: Current Medications Amantadine HCl (Amantadine 100 Mg Cap) 100 mg PO DAILY [facility] Last Admin: 11/17/17 09:55 Dose: Not Given Amlodipine Besylate (Norvasc) 10 mg PO DAILY [facility] Last Admin: 11/17/17 10:04 Dose: Not Given Aspirin (Ecotrin) 81 mg PO DAILY [facility] Last Admin: 11/17/17 10:00 Dose: Not Given Enoxaparin Sodium (Lovenox) 30 mg SC 1000,2200 [facility] Last Admin: 11/17/17 10:49 Dose: Not Given Ergocalciferol (Drisdol 50,000 Intl Units Cap) 1 cap PO Q7D [facility] Last Admin: 11/17/17 09:59 Dose: Not Given Home Med (Patient's Own Medication) 1 tab PO DAILY [facility] Aztreonam 1 gm/ Sodium (Chloride) 100 mls @ 200 mls/hr IVPB Q8H [facility] Last Admin: 11/17/17 10:51 Dose: 200 mls/hr Clindamycin Phosphate 600 mg/ (Sodium Chloride) 54 mls @ 100 mls/hr IVPB Q8H [facility] Last Admin: 11/17/17 08:58 Dose: 100 mls/hr Dextrose/Sodium Chloride (Dextrose 5%/0.9% Ns 1000 Ml) 1,000 mls @ 100 mls/hr IV .Q10H [facility] Last Admin: 11/17/17 09:58 Dose: Not Given Insulin Aspart (Novolog) 0 unit SC ACHS [facility] PRN Reason: Protocol Last Admin: 11/17/17 11:25 Dose: Not Given Losartan Potassium (Cozaar) 100 mg PO DAILY [facility] Last Admin: 11/17/17 10:57 Dose: 100 mg Metoprolol Tartrate (Lopressor) 50 mg PO DAILY [facility] Last Admin: 11/17/17 10:57 Dose: 50 mg Pantoprazole Sodium (Protonix Ec Tab) 40 mg PO DAILY [facility] Last Admin: 11/17/17 10:05 Dose: Not Given Rosuvastatin Calcium (Crestor) 5 mg PO HS [facility] Last Admin: 11/16/17 21:59 Dose: 5 mg - Labs Labs: 11/15/17 09:25 11/15/17 09:25 - Constitutional Appears: Non-toxic, Chronically Ill - Head Exam Head Exam: NORMOCEPHALIC - Eye Exam Eye Exam: PERRL. absent: Scleral icterus - ENT Exam ENT Exam: Mucous Membranes Dry - Neck Exam Neck Exam: absent: Lymphadenopathy - Respiratory Exam Respiratory Exam: Decreased Breath Sounds - Cardiovascular Exam Cardiovascular Exam: REGULAR RHYTHM - GI/Abdominal Exam GI & Abdominal Exam: Distended, Soft - Rectal Exam Rectal Exam: Deferred - Exam Exam: NORMAL INSPECTION - Extremities Exam Extremities Exam: absent: Pedal Edema - Back Exam Back Exam: absent: CVA tenderness (L), CVA tenderness (R) - Neurological Exam Neurological Exam: Alert, Awake, Oriented x3 - Psychiatric Exam Psychiatric exam: Normal Mood - Skin Skin Exam: Dry Assessment and Plan (1) Cellulitis Status: Acute (2) Diabetic foot ulcer Status: Acute - Assessment and Plan (Free Text) Assessment: severe PVD/ infected fifth digit right foot DM cont IV rx and wound care vascular eval
--- NOTE | 2017-11-17 15:50 | PCM.SURG1 ---
Surgeon's Initial Post Op Note - Surgeon's Notes Surgeon: Dr. Sawant Towel Sorter: Bekah GUZMAN Pre-Operative Diagnosis: Perhipheral arterial disease Operative Findings: severe bilateral tibial disease. Anterior tibial only vessel into foot on Right Post-Operative Diagnosis: as above Operation Performed: Aortofemoral angiography, Right femoral and peroneal angioplasty, Right anterior tibial atherectomy Specimen/Specimens Removed: none Estimated Blood Loss: EBL {In ML}: 50 Drains Used: No Drains Date of Surgery/Procedure: 11/17/17 Time of Surgery/Procedure: 15:50
[2017-11-18] MEDS: Aztreonam 1 GM in Sodium Chloride 0.9% 100 ML IVPB SCH ×3 (01:36→18:14)
[2017-11-18 07:57] LABS: BASO # 0.1 K/uL (0.0-0.2); EOS # 0.1 K/uL (0.0-0.7); EOS % 1.1 % (0.0-4.0); HEMOGLOBIN 12.8 g/dL (12.0-18.0); LYMPH # 1.5 K/uL (1.0-4.3); LYMPH % 21.4 % (20.0-40.0); MEAN CELL VOLUME 105.4 fL (80.0-94.0); MEAN CORPUSCULAR HEMOGLOBIN 37.9 pg (27.0-31.0); MEAN CORPUSCULAR HGB CONC 35.9 g/dL (33.0-37.0); MEAN PLATELET VOLUME 7.1 fL (7.2-11.7); MONO # 0.7 K/uL (0.0-0.8); MONO % 9.9 % (0.0-10.0); NEUT # 4.7 K/uL (1.8-7.0); NEUT % 66.6 % (50.0-75.0); NRBC % 0.1 % (0.0-2.0); RBC 3.38 Mil/uL (4.40-5.90); RED CELL DISTRIBUTION WIDTH 12.1 % (11.5-14.5)
[2017-11-18 08:07] LABS: ALB/GLOB RATIO 1.2 (1.0-2.1); ALBUMIN 3.3 g/dL (3.5-5.0); ALT/SGPT 32 U/L (21-72); AST/SGOT 25 U/L (17-59); BLOOD UREA NITROGEN 24 mg/dL (9-20); CALCIUM 8.6 mg/dl (8.6-10.4); GFR AFRICAN-AMERICAN > 60; GFR NON-AFRICAN AMERICAN 56
[2017-11-18] MEDS: (Novolog) Insulin Aspart, Recombinant 100 u/ml 10 ml vial SC SCH ×4 (08:30→21:22)
--- NOTE | 2017-11-18 09:14 | CP.PCM.PN ---
Subjective - Date & Time of Evaluation Date of Evaluation: 11/18/17 Time of Evaluation: 07:00 - Subjective Subjective: Vascular Surgery Pt S&E, Has some mild pains in foot, similar to prior to the surgery no new complaints. Objective - Vital Signs/Intake and Output Vital Signs (last 24 hours): Temp Pulse Resp BP Pulse Ox 98.6 F 103 H 20 168/95 H 96 11/18/17 08:00 11/18/17 08:00 11/18/17 08:00 11/18/17 08:00 11/18/17 08:00 Intake and Output: 11/18/17 11/18/17 06:59 18:59 Intake Total 950 Balance 950 - Medications Medications: Current Medications Amantadine HCl (Amantadine 100 Mg Cap) 100 mg PO DAILY [facility] Last Admin: 11/17/17 09:55 Dose: Not Given Amlodipine Besylate (Norvasc) 10 mg PO DAILY [facility] Last Admin: 11/17/17 10:04 Dose: Not Given Aspirin (Ecotrin) 81 mg PO DAILY [facility] Last Admin: 11/17/17 10:00 Dose: Not Given Enoxaparin Sodium (Lovenox) 30 mg SC 1000,2200 [facility] Last Admin: 11/17/17 10:49 Dose: Not Given Ergocalciferol (Drisdol 50,000 Intl Units Cap) 1 cap PO Q7D [facility] Last Admin: 11/17/17 09:59 Dose: Not Given Home Med (Patient's Own Medication) 1 tab PO DAILY [facility] Aztreonam 1 gm/ Sodium (Chloride) 100 mls @ 200 mls/hr IVPB Q8H [facility] Last Admin: 11/18/17 01:36 Dose: 200 mls/hr Clindamycin Phosphate 600 mg/ (Sodium Chloride) 54 mls @ 100 mls/hr IVPB Q8H [facility] Last Admin: 11/18/17 08:42 Dose: 100 mls/hr Dextrose/Sodium Chloride (Dextrose 5%/0.9% Ns 1000 Ml) 1,000 mls @ 100 mls/hr IV .Q10H [facility] Last Admin: 11/17/17 19:08 Dose: 100 mls/hr Insulin Aspart (Novolog) 0 unit SC ACHS [facility] PRN Reason: Protocol Last Admin: 11/18/17 08:30 Dose: 3 unit Losartan Potassium (Cozaar) 100 mg PO DAILY [facility] Last Admin: 11/17/17 10:57 Dose: 100 mg Metoprolol Tartrate (Lopressor) 50 mg PO DAILY [facility] Last Admin: 11/17/17 10:57 Dose: 50 mg Pantoprazole Sodium (Protonix Ec Tab) 40 mg PO DAILY [facility] Last Admin: 11/17/17 10:05 Dose: Not Given Rosuvastatin Calcium (Crestor) 5 mg PO HS [facility] Last Admin: 11/17/17 21:29 Dose: 5 mg - Labs Labs: 11/18/17 07:47 11/18/17 07:47 - Constitutional Appears: Non-toxic, No Acute Distress - Head Exam Head Exam: ATRAUMATIC, NORMOCEPHALIC - Eye Exam Eye Exam: EOMI. absent: Scleral icterus - Respiratory Exam Respiratory Exam: NORMAL BREATHING PATTERN. absent: Respiratory Distress - GI/Abdominal Exam GI & Abdominal Exam: Soft. absent: Distended, Tenderness - Extremities Exam Additional comments: no hematoma at access site - Neurological Exam Neurological Exam: Alert, Awake - Skin Skin Exam: Dry, Warm Assessment and Plan - Assessment and Plan (Free Text) Assessment: 62M s/p Right femoral and peroneal angioplasty, Right anterior tibial atherectomy POD#1 Plan: Awaiting venous doppler results for planning purposes. Pt may need bypass in future. Monitor Foot. Will D/W Dr. Jese Ham PGY4
--- NOTE | 2017-11-18 10:04 | CP.PCM.PN ---
Subjective - Date & Time of Evaluation Date of Evaluation: 11/18/17 Time of Evaluation: 10:04 - Subjective Subjective: Podiatry Progress note - Dr. Manriquez 62 year old male patient was seen at bedside regarding right 5th digit wound. Patient is AAOx3 and is in NAD. Patient reports of no acute overnight events. Denies any pain to his right 5th digit. States that yesterday he went for his angio. Denies any n/v/f/c/sob/cp. Objective - Vital Signs/Intake and Output Vital Signs (last 24 hours): Temp Pulse Resp BP Pulse Ox 98.6 F 103 H 20 168/95 H 96 11/18/17 08:00 11/18/17 08:00 11/18/17 08:00 11/18/17 08:00 11/18/17 08:00 Intake and Output: 11/18/17 11/18/17 06:59 18:59 Intake Total 950 Balance 950 - Medications Medications: Current Medications Amantadine HCl (Amantadine 100 Mg Cap) 100 mg PO DAILY [facility] Last Admin: 11/17/17 09:55 Dose: Not Given Amlodipine Besylate (Norvasc) 10 mg PO DAILY [facility] Last Admin: 11/17/17 10:04 Dose: Not Given Aspirin (Ecotrin) 81 mg PO DAILY [facility] Last Admin: 11/17/17 10:00 Dose: Not Given Enoxaparin Sodium (Lovenox) 30 mg SC 1000,2200 [facility] Last Admin: 11/17/17 10:49 Dose: Not Given Ergocalciferol (Drisdol 50,000 Intl Units Cap) 1 cap PO Q7D [facility] Last Admin: 11/17/17 09:59 Dose: Not Given Home Med (Patient's Own Medication) 1 tab PO DAILY [facility] Aztreonam 1 gm/ Sodium (Chloride) 100 mls @ 200 mls/hr IVPB Q8H [facility] Last Admin: 11/18/17 01:36 Dose: 200 mls/hr Clindamycin Phosphate 600 mg/ (Sodium Chloride) 54 mls @ 100 mls/hr IVPB Q8H [facility] Last Admin: 11/18/17 08:42 Dose: 100 mls/hr Dextrose/Sodium Chloride (Dextrose 5%/0.9% Ns 1000 Ml) 1,000 mls @ 100 mls/hr IV .Q10H [facility] Last Admin: 11/17/17 19:08 Dose: 100 mls/hr Insulin Aspart (Novolog) 0 unit SC ACHS [facility] PRN Reason: Protocol Last Admin: 11/18/17 08:30 Dose: 3 unit Losartan Potassium (Cozaar) 100 mg PO DAILY [facility] Last Admin: 11/17/17 10:57 Dose: 100 mg Metoprolol Tartrate (Lopressor) 50 mg PO DAILY [facility] Last Admin: 11/17/17 10:57 Dose: 50 mg Pantoprazole Sodium (Protonix Ec Tab) 40 mg PO DAILY [facility] Last Admin: 11/17/17 10:05 Dose: Not Given Rosuvastatin Calcium (Crestor) 5 mg PO HS [facility] Last Admin: 11/17/17 21:29 Dose: 5 mg - Labs Labs: 11/18/17 07:47 11/18/17 07:47 - Constitutional Appears: Well, Non-toxic, No Acute Distress - Extremities Exam Additional comments: Lower extremtiy focused exam: VASC: DP and PT pulses are non-palpable. CFT > 4 seconds to all digits, Skin temperature warm to cool from proximal to distal. mild non-pitting edema noted at the distal aspect of the foot on the right DERM: ulcer noted on the dorsal and distal aspect of the 5th digit on the right measuring approximately the entire size of the digit, mild serous drainage noted , wound base is 50% fibrotic and 50% granular, no tunneling, + probe to bone from the plantar aspect, no malodor, van-wound erythema noted on extending proximally to the level of MTPJ, van-wound maceration noted at the distal aspect of the digit NEURO: Epicritic and protective sensation mildly diminished ORTHO: mild tenderness on palpation of the right 5th digit - Neurological Exam Neurological Exam: Alert, Awake, Oriented x3 - Psychiatric Exam Psychiatric exam: Normal Affect, Normal Mood Assessment and Plan - Assessment and Plan (Free Text) Assessment: 62 year old male with right 5th digit ulcer Plan: Patient seen and evaluated Discussed with attending Dr. Manriquez Labs, vitals and charts reviewed - afebrile X-rays of the foot:increase in soft tissue density accompanied with cortical erosion at the level of IPJ consistent with possible OM Wound cultures: Pseudomonas and beta hemolytic strep group B cont IV abx per ID Arterial duplex pending Podiatry will hold any surgical intervention at this time and will follow vascular recommendations Wound cleaned with saline and dressing applied using Betadine, DSD Podiatry to follow patient while in-house
[2017-11-18] MEDS: Pantoprazole 40 mg EC Tab PO SCH (10:10)
[2017-11-18] MEDS: TRIUMEQ PO SCH (10:16)
--- NOTE | 2017-11-18 11:43 | CP.PCM.PN ---
Subjective - Date & Time of Evaluation Date of Evaluation: 11/18/17 Time of Evaluation: 08:00 - Subjective Subjective: feels ok no fever foot warm Objective - Vital Signs/Intake and Output Vital Signs (last 24 hours): Temp Pulse Resp BP Pulse Ox 98.6 F 103 H 20 168/95 H 96 11/18/17 08:00 11/18/17 08:00 11/18/17 08:00 11/18/17 08:00 11/18/17 08:00 Intake and Output: 11/18/17 11/18/17 06:59 18:59 Intake Total 950 Balance 950 - Medications Medications: Current Medications Amantadine HCl (Amantadine 100 Mg Cap) 100 mg PO DAILY [facility] Last Admin: 11/18/17 10:11 Dose: 100 mg Amlodipine Besylate (Norvasc) 10 mg PO DAILY [facility] Last Admin: 11/18/17 10:11 Dose: 10 mg Aspirin (Ecotrin) 81 mg PO DAILY [facility] Last Admin: 11/18/17 10:11 Dose: 81 mg Enoxaparin Sodium (Lovenox) 30 mg SC 1000,2200 [facility] Last Admin: 11/17/17 10:49 Dose: Not Given Ergocalciferol (Drisdol 50,000 Intl Units Cap) 1 cap PO Q7D [facility] Last Admin: 11/17/17 09:59 Dose: Not Given Home Med (Patient's Own Medication) 1 tab PO DAILY [facility] Last Admin: 11/18/17 10:16 Dose: 1 tab Aztreonam 1 gm/ Sodium (Chloride) 100 mls @ 200 mls/hr IVPB Q8H [facility] Last Admin: 11/18/17 10:20 Dose: 200 mls/hr Clindamycin Phosphate 600 mg/ (Sodium Chloride) 54 mls @ 100 mls/hr IVPB Q8H [facility] Last Admin: 11/18/17 08:42 Dose: 100 mls/hr Dextrose/Sodium Chloride (Dextrose 5%/0.9% Ns 1000 Ml) 1,000 mls @ 100 mls/hr IV .Q10H [facility] Last Admin: 11/17/17 19:08 Dose: 100 mls/hr Insulin Aspart (Novolog) 0 unit SC ACHS [facility] PRN Reason: Protocol Last Admin: 11/18/17 08:30 Dose: 3 unit Losartan Potassium (Cozaar) 100 mg PO DAILY [facility] Last Admin: 11/18/17 10:11 Dose: 100 mg Metoprolol Tartrate (Lopressor) 50 mg PO DAILY [facility] Last Admin: 11/18/17 10:11 Dose: 50 mg Pantoprazole Sodium (Protonix Ec Tab) 40 mg PO DAILY [facility] Last Admin: 11/18/17 10:10 Dose: 40 mg Rosuvastatin Calcium (Crestor) 5 mg PO HS [facility] Last Admin: 11/17/17 21:29 Dose: 5 mg - Labs Labs: 11/18/17 07:47 11/18/17 07:47 - Constitutional Appears: Non-toxic, Chronically Ill - Head Exam Head Exam: NORMOCEPHALIC - Eye Exam Eye Exam: PERRL - ENT Exam ENT Exam: Mucous Membranes Dry - Neck Exam Neck Exam: absent: Lymphadenopathy - Respiratory Exam Respiratory Exam: Decreased Breath Sounds - Cardiovascular Exam Cardiovascular Exam: REGULAR RHYTHM - GI/Abdominal Exam GI & Abdominal Exam: Distended, Soft - Rectal Exam Rectal Exam: Deferred - Exam Exam: NORMAL INSPECTION - Extremities Exam Extremities Exam: Pedal Edema. absent: Tenderness - Back Exam Back Exam: absent: CVA tenderness (L), CVA tenderness (R) Assessment and Plan (1) Cellulitis Status: Acute (2) Diabetic foot ulcer Status: Acute (3) CAD (coronary artery disease) Status: Acute (4) CAD (coronary artery disease) of bypass graft Status: Acute (5) PVD (peripheral vascular disease) Status: Acute (6) PVD (peripheral vascular disease) with claudication Status: Acute (7) PVD (posterior vitreous detachment) Status: Acute - Assessment and Plan (Free Text) Assessment: infected right foot ? need for OR / amp cont IV antibiotics
--- NOTE | 2017-11-18 12:12 | CP.PCM.PN ---
Subjective - Date & Time of Evaluation Date of Evaluation: 11/18/17 Time of Evaluation: 12:09 - Subjective Subjective: CONDITION SAME. VASCULAR EVAL DONE. Objective - Vital Signs/Intake and Output Vital Signs (last 24 hours): Temp Pulse Resp BP Pulse Ox 98.6 F 103 H 20 168/95 H 96 11/18/17 08:00 11/18/17 08:00 11/18/17 08:00 11/18/17 08:00 11/18/17 08:00 Intake and Output: 11/18/17 11/18/17 06:59 18:59 Intake Total 950 Balance 950 - Medications Medications: Current Medications Amantadine HCl (Amantadine 100 Mg Cap) 100 mg PO DAILY [facility] Last Admin: 11/18/17 10:11 Dose: 100 mg Amlodipine Besylate (Norvasc) 10 mg PO DAILY [facility] Last Admin: 11/18/17 10:11 Dose: 10 mg Aspirin (Ecotrin) 81 mg PO DAILY [facility] Last Admin: 11/18/17 10:11 Dose: 81 mg Enoxaparin Sodium (Lovenox) 30 mg SC 1000,2200 [facility] Last Admin: 11/17/17 10:49 Dose: Not Given Ergocalciferol (Drisdol 50,000 Intl Units Cap) 1 cap PO Q7D [facility] Last Admin: 11/17/17 09:59 Dose: Not Given Home Med (Patient's Own Medication) 1 tab PO DAILY [facility] Last Admin: 11/18/17 10:16 Dose: 1 tab Aztreonam 1 gm/ Sodium (Chloride) 100 mls @ 200 mls/hr IVPB Q8H [facility] Last Admin: 11/18/17 10:20 Dose: 200 mls/hr Clindamycin Phosphate 600 mg/ (Sodium Chloride) 54 mls @ 100 mls/hr IVPB Q8H [facility] Last Admin: 11/18/17 08:42 Dose: 100 mls/hr Dextrose/Sodium Chloride (Dextrose 5%/0.9% Ns 1000 Ml) 1,000 mls @ 100 mls/hr IV .Q10H [facility] Last Admin: 11/17/17 19:08 Dose: 100 mls/hr Insulin Aspart (Novolog) 0 unit SC ACHS [facility] PRN Reason: Protocol Last Admin: 11/18/17 08:30 Dose: 3 unit Losartan Potassium (Cozaar) 100 mg PO DAILY [facility] Last Admin: 11/18/17 10:11 Dose: 100 mg Metoprolol Tartrate (Lopressor) 50 mg PO BID [facility] Pantoprazole Sodium (Protonix Ec Tab) 40 mg PO DAILY [facility] Last Admin: 11/18/17 10:10 Dose: 40 mg Rosuvastatin Calcium (Crestor) 5 mg PO HS [facility] Last Admin: 11/17/17 21:29 Dose: 5 mg - Labs Labs: 11/18/17 07:47 11/18/17 07:47 - Constitutional Appears: No Acute Distress, Chronically Ill - Eye Exam Eye Exam: Normal appearance Pupil Exam: PERRL - ENT Exam ENT Exam: Normal Exam - Respiratory Exam Respiratory Exam: Clear to Ausculation Bilateral, NORMAL BREATHING PATTERN - Cardiovascular Exam Cardiovascular Exam: REGULAR RHYTHM, +S1, +S2 - GI/Abdominal Exam GI & Abdominal Exam: Soft, Normal Bowel Sounds - Back Exam Back Exam: NORMAL INSPECTION - Neurological Exam Neurological Exam: Alert, Awake, CN II-XII Intact, Normal Gait, Oriented x3 Assessment and Plan - Assessment and Plan (Free Text) Assessment: RT FOOT WOUND INF. Plan: IV ABTS. PER VASCULAR AND PODIETRY.
[2017-11-18] MEDS: Dextrose 5%/0.9% NS 1,000 ML IV SCH (13:06)
--- NOTE | 2017-11-18 14:26 | VAS ---
DATE: 11/17/2017. PREOPERATIVE DIAGNOSES: Foot ulcer, cellulitis. PROCEDURES CARRIED OUT: Aortofemoral angiogram via left groin with selective catheterization of right femoral artery. Balloon angioplasty using a 2.5 to 3 mm balloon of the perineal artery. Atherectomy and balloon angioplasty using a 2.5 to 3 mm balloon of the anterior tibial artery, Perclose closure left groin. SURGEON: Bong Sawant Jr., MD BED LABORER: None. ANESTHESIOLOGIST: Mr. [employer]. INDICATIONS: The patient is a 62-year-old male diabetic with history of coronary artery disease who presents with ulceration of the foot. OPERATIVE FINDINGS: 1. The aorta and renal arteries are free of significant occlusive disease. Both common iliac, external iliac, internal iliac, and common femoral artery and the proximal portion of the superficial, femoral, and popliteal arteries were widely patent. Detailed pictures were not taken below the level on the left side. On the right side, there was severe trifurcation disease with the anterior tibial artery being occluded soon after its origin and reconstituting at the ankle and continuing into the foot. The perineal artery severely in its proximal portion and not connecting into the foot. Posterior tibial artery is severely diseased and not connecting into the foot. Subsequently, to the performance of the diagnostic arteriogram, a stiff angled guidewire was advanced over the aorta bifurcation and a 7 Bulgarian catheter positioned in the distal portion of the popliteal artery. Using road-mapping techniques, these lesions were crossed and additionally the perineal artery which we were able to balloon down to the level of the ankle. Cosmetic results were satisfactory. However, we did imply an additional 4 mm balloon to the proximal portion of the perineal artery. Subsequent to this, again using road-mapping techniques, we were able to cannulate the anterior tibial down to the level of the dorsalis pedis. We then carried out an atherectomy using the pathway atherectomy device as well as went down to the mid calf; however, we were unable to advance this beyond that level. We then ballooned this with a 1.5 mm balloon and then subsequently dilated this with a 2.5 and a tapered 2.5 to 3 mm long balloon. Final cosmetic results were excellent. Catheter was then removed and a Perclose device deployed in the left groin. Operation was carried out, aortofemoral angiogram with selective catheterization of right femoral artery, balloon angioplasty of the perineal artery. Atherectomy and balloon angioplasty of the anterior tibial artery. Major vessel into the foot is the dorsalis pedis artery. Bong Sawant Jr., MD cc: Dr. Peng and Dr. Manriquez .
[2017-11-19] MEDS: Dextrose 5%/0.9% NS 1,000 ML IV SCH ×5 (00:02→21:25)
[2017-11-19] MEDS: Aztreonam 1 GM in Sodium Chloride 0.9% 100 ML IVPB SCH ×3 (02:10→17:00)
[2017-11-19] MEDS: (Novolog) Insulin Aspart, Recombinant 100 u/ml 10 ml vial SC SCH ×4 (08:07→21:26)
--- NOTE | 2017-11-19 10:22 | CP.PCM.PN ---
<Temitope Ariraza - Last Filed: 11/19/17 11:17> Subjective - Date & Time of Evaluation Date of Evaluation: 11/19/17 Time of Evaluation: 10:22 - Subjective Subjective: Podiatry Progress note - Dr. Manriquez 62 year old male patient was seen at bedside regarding right 5th digit wound. Patient is AAOx3 and is in NAD. Patient reports of no acute overnight events. Denies any pain to his right 5th digit. He is aware that tomorrow morning he is going for a right 5th digit amputation. Denies any n/v/f/c/sob/cp. Objective - Vital Signs/Intake and Output Vital Signs (last 24 hours): Temp Pulse Resp BP Pulse Ox 98.3 F 93 H 20 153/89 H 95 11/19/17 08:00 11/19/17 08:00 11/19/17 08:00 11/19/17 08:00 11/19/17 08:00 Intake and Output: 11/19/17 11/19/17 06:59 18:59 Intake Total 2340 Balance 2340 - Medications Medications: Current Medications Amantadine HCl (Amantadine 100 Mg Cap) 100 mg PO DAILY [facility] Last Admin: 11/18/17 10:11 Dose: 100 mg Amlodipine Besylate (Norvasc) 10 mg PO DAILY [facility] Last Admin: 11/18/17 10:11 Dose: 10 mg Aspirin (Ecotrin) 81 mg PO DAILY [facility] Last Admin: 11/18/17 10:11 Dose: 81 mg Enoxaparin Sodium (Lovenox) 30 mg SC 1000,2200 [facility] Last Admin: 11/17/17 10:49 Dose: Not Given Ergocalciferol (Drisdol 50,000 Intl Units Cap) 1 cap PO Q7D [facility] Last Admin: 11/17/17 09:59 Dose: Not Given Home Med (Patient's Own Medication) 1 tab PO DAILY [facility] Last Admin: 11/18/17 10:16 Dose: 1 tab Aztreonam 1 gm/ Sodium (Chloride) 100 mls @ 200 mls/hr IVPB Q8H [facility] Last Admin: 11/19/17 02:10 Dose: 200 mls/hr Clindamycin Phosphate 600 mg/ (Sodium Chloride) 54 mls @ 100 mls/hr IVPB Q8H [facility] Last Admin: 11/19/17 08:37 Dose: 100 mls/hr Dextrose/Sodium Chloride (Dextrose 5%/0.9% Ns 1000 Ml) 1,000 mls @ 100 mls/hr IV .Q10H [facility] Last Admin: 11/19/17 06:00 Dose: 100 mls/hr Insulin Aspart (Novolog) 0 unit SC ACHS [facility] PRN Reason: Protocol Last Admin: 11/19/17 08:07 Dose: Not Given Losartan Potassium (Cozaar) 100 mg PO DAILY [facility] Last Admin: 11/18/17 10:11 Dose: 100 mg Metoprolol Tartrate (Lopressor) 50 mg PO BID [facility] Last Admin: 11/18/17 18:35 Dose: 50 mg Pantoprazole Sodium (Protonix Ec Tab) 40 mg PO DAILY [facility] Last Admin: 11/18/17 10:10 Dose: 40 mg Rosuvastatin Calcium (Crestor) 5 mg PO HS [facility] Last Admin: 11/18/17 21:19 Dose: 5 mg - Labs Labs: 11/18/17 07:47 11/18/17 07:47 - Constitutional Appears: Well, Non-toxic, No Acute Distress - Extremities Exam Additional comments: Lower extremity focused exam: VASC: DP and PT pulses are non-palpable. CFT > 4 seconds to all digits, Skin temperature warm to cool from proximal to distal. mild non-pitting edema noted at the distal aspect of the foot on the right DERM: ulcer noted on the dorsal and distal aspect of the 5th digit on the right measuring approximately the entire size of the digit, mild serous drainage noted , wound base is 50% fibrotic and 50% granular, no tunneling, + probe to bone from the plantar aspect, no malodor, van-wound erythema noted on extending proximally to the level of MTPJ, van-wound maceration noted at the distal aspect of the digit NEURO: Epicritic and protective sensation mildly diminished ORTHO: mild tenderness on palpation of the right 5th digit - Neurological Exam Neurological Exam: Alert, Awake, Oriented x3 - Psychiatric Exam Psychiatric exam: Normal Affect, Normal Mood Assessment and Plan - Assessment and Plan (Free Text) Assessment: 62 year old male with right 5th digit ulcer Plan: Patient seen and evaluated Discussed with attending Dr. Manriquez Labs, vitals and charts reviewed - afebrile X-rays of the foot:increase in soft tissue density accompanied with cortical erosion at the level of IPJ consistent with possible OM Wound cultures: Pseudomonas and beta hemolytic strep group B cont IV abx per ID Wound cleaned with saline and dressing applied using Betadine, DSD Patient to OR tomorrow morning for right 5th digit amputation Medical optimization needed NPO after midnight Anticoagulation held Podiatry to follow patient while in-house <Loco Manriquez - Last Filed: 11/19/17 20:31> Objective - Vital Signs/Intake and Output Vital Signs (last 24 hours): Temp Pulse Resp BP Pulse Ox 98.5 F 77 20 157/85 H 98 11/19/17 16:00 11/19/17 16:00 11/19/17 16:00 11/19/17 16:00 11/19/17 16:00 Intake and Output: 11/19/17 11/20/17 18:59 06:59 Intake Total 1280 Balance 1280 - Medications Medications: Current Medications Amantadine HCl (Amantadine 100 Mg Cap) 100 mg PO DAILY [facility] Last Admin: 11/19/17 12:31 Dose: 100 mg Amlodipine Besylate (Norvasc) 10 mg PO DAILY [facility] Last Admin: 11/19/17 10:40 Dose: 10 mg Aspirin (Ecotrin) 81 mg PO DAILY [facility] Last Admin: 11/18/17 10:11 Dose: 81 mg Enoxaparin Sodium (Lovenox) 30 mg SC 1000,2200 [facility] Last Admin: 11/17/17 10:49 Dose: Not Given Ergocalciferol (Drisdol 50,000 Intl Units Cap) 1 cap PO Q7D [facility] Last Admin: 11/17/17 09:59 Dose: Not Given Home Med (Patient's Own Medication) 1 tab PO DAILY [facility] Last Admin: 11/19/17 10:41 Dose: 1 tab Aztreonam 1 gm/ Sodium (Chloride) 100 mls @ 200 mls/hr IVPB Q8H [facility] Last Admin: 11/19/17 17:00 Dose: 200 mls/hr Clindamycin Phosphate 600 mg/ (Sodium Chloride) 54 mls @ 100 mls/hr IVPB Q8H [facility] Last Admin: 11/19/17 16:26 Dose: 100 mls/hr Dextrose/Sodium Chloride (Dextrose 5%/0.9% Ns 1000 Ml) 1,000 mls @ 100 mls/hr IV .Q10H [facility] Last Admin: 11/19/17 10:41 Dose: Not Given Insulin Aspart (Novolog) 0 unit SC ACHS [facility] PRN Reason: Protocol Last Admin: 11/19/17 17:05 Dose: 3 unit Losartan Potassium (Cozaar) 100 mg PO DAILY [facility] Last Admin: 11/19/17 10:40 Dose: 100 mg Metoprolol Tartrate (Lopressor) 50 mg PO BID [facility] Last Admin: 11/19/17 17:00 Dose: 50 mg Pantoprazole Sodium (Protonix Ec Tab) 40 mg PO DAILY [facility] Last Admin: 11/19/17 10:40 Dose: 40 mg Rosuvastatin Calcium (Crestor) 5 mg PO HS [facility] Last Admin: 11/18/17 21:19 Dose: 5 mg - Labs Labs: 11/18/17 07:47 11/18/17 07:47 Assessment and Plan - Assessment and Plan (Free Text) Plan: Procedure discussed with patient in detail . Amputation discussed as definitive procedure howeverI explained to patient we will examine area closely when in OR and If debridement extended IV antibiotics are reasonable option we will go that route . Pt understands and excepts either option which we decide intra operatively .
[2017-11-19] MEDS: Pantoprazole 40 mg EC Tab PO SCH (10:40)
[2017-11-19] MEDS: TRIUMEQ PO SCH (10:41)
--- NOTE | 2017-11-19 11:54 | CP.PCM.PN ---
Subjective - Date & Time of Evaluation Date of Evaluation: 11/19/17 Time of Evaluation: 11:52 - Subjective Subjective: PT ASYMPTOMATIC. DIABETIV FOOT ULCER. VS WNL. Objective - Vital Signs/Intake and Output Vital Signs (last 24 hours): Temp Pulse Resp BP Pulse Ox 98.3 F 93 H 20 153/89 H 95 11/19/17 08:00 11/19/17 08:00 11/19/17 08:00 11/19/17 08:00 11/19/17 08:00 Intake and Output: 11/19/17 11/19/17 06:59 18:59 Intake Total 2340 Balance 2340 - Medications Medications: Current Medications Amantadine HCl (Amantadine 100 Mg Cap) 100 mg PO DAILY [facility] Last Admin: 11/18/17 10:11 Dose: 100 mg Amlodipine Besylate (Norvasc) 10 mg PO DAILY [facility] Last Admin: 11/19/17 10:40 Dose: 10 mg Aspirin (Ecotrin) 81 mg PO DAILY [facility] Last Admin: 11/18/17 10:11 Dose: 81 mg Enoxaparin Sodium (Lovenox) 30 mg SC 1000,2200 [facility] Last Admin: 11/17/17 10:49 Dose: Not Given Ergocalciferol (Drisdol 50,000 Intl Units Cap) 1 cap PO Q7D [facility] Last Admin: 11/17/17 09:59 Dose: Not Given Home Med (Patient's Own Medication) 1 tab PO DAILY [facility] Last Admin: 11/19/17 10:41 Dose: 1 tab Aztreonam 1 gm/ Sodium (Chloride) 100 mls @ 200 mls/hr IVPB Q8H [facility] Last Admin: 11/19/17 10:44 Dose: 200 mls/hr Clindamycin Phosphate 600 mg/ (Sodium Chloride) 54 mls @ 100 mls/hr IVPB Q8H [facility] Last Admin: 11/19/17 08:37 Dose: 100 mls/hr Dextrose/Sodium Chloride (Dextrose 5%/0.9% Ns 1000 Ml) 1,000 mls @ 100 mls/hr IV .Q10H [facility] Last Admin: 11/19/17 10:41 Dose: Not Given Insulin Aspart (Novolog) 0 unit SC ACHS [facility] PRN Reason: Protocol Last Admin: 11/19/17 08:07 Dose: Not Given Losartan Potassium (Cozaar) 100 mg PO DAILY [facility] Last Admin: 11/19/17 10:40 Dose: 100 mg Metoprolol Tartrate (Lopressor) 50 mg PO BID [facility] Last Admin: 11/19/17 10:40 Dose: 50 mg Pantoprazole Sodium (Protonix Ec Tab) 40 mg PO DAILY [facility] Last Admin: 11/19/17 10:40 Dose: 40 mg Rosuvastatin Calcium (Crestor) 5 mg PO HS [facility] Last Admin: 11/18/17 21:19 Dose: 5 mg - Labs Labs: 11/18/17 07:47 11/18/17 07:47 - Constitutional Appears: No Acute Distress, Chronically Ill - Eye Exam Eye Exam: PERRL - ENT Exam ENT Exam: Normal Exam - Respiratory Exam Respiratory Exam: Clear to Ausculation Bilateral, NORMAL BREATHING PATTERN - Cardiovascular Exam Cardiovascular Exam: REGULAR RHYTHM, +S1, +S2 - GI/Abdominal Exam GI & Abdominal Exam: Soft, Normal Bowel Sounds - Extremities Exam Extremities Exam: Full ROM, Normal Capillary Refill, Normal Inspection. absent : Joint Swelling, Pedal Edema - Back Exam Back Exam: NORMAL INSPECTION - Neurological Exam Neurological Exam: Alert, Awake, CN II-XII Intact, Normal Gait, Oriented x3 Assessment and Plan - Assessment and Plan (Free Text) Assessment: STABLE. Plan: OK FOR AMPUTATION OF RT LITTLE TOE.
--- NOTE | 2017-11-19 12:02 | VASCLAB ---
PROCEDURE: Bilateral Lower Extremity Vein Mapping. HISTORY: Vein mapping, pre-op bypass PRIORS: None. TECHNIQUE: Bilateral common femoral, femoral, popliteal and posterior tibial, peroneal and great saphenous veins were evaluated. Flow was assessed with color Doppler, compressibility, assessment of phasic flow and augmentation response. Report prepared by Kojo Maher, ZEN, RVT FINDINGS: RIGHT: 1. Common Femoral Vein: Compressibility - Fully compressible: Thrombus - None : Flow - Phasic: Augmentation -Normal: Reflux - None. 2. Femoral Vein:Compressibility - Fully compressible: Thrombus - None 3. Popliteal Vein: Compressibility - Fully compressible: Thrombus - None 4. Posterior Tibial Vein: Compressibility - Fully compressible: Thrombus - None 5. Peroneal Vein:Compressibility - Fully compressible: Thrombus - None 6. Greater Saphenous Vein: Previously harvested. 7. [place]away Saphenous Vein: Compressibility - Fully compressible: thrombus - None 7.1. Knee - Diameter 0.67cm 7.2. Calf - Proximal Diameter: 0.42cm. Mid Diameter: 0.28cm. Distal Diameter: 0.27cm. 7.3. Ankle - Diameter: 0.30cm LEFT: 1. Common Femoral Vein: Compressibility - Fully compressible: Thrombus - None : Flow - Phasic: Augmentation -Normal: Reflux - None. 2. Femoral Vein:Compressibility - Fully compressible: Thrombus - None 3. Popliteal Vein: Compressibility - Fully compressible: Thrombus - None 4. Posterior Tibial Vein: Compressibility - Fully compressible: Thrombus - None 5. Peroneal Vein:Compressibility - Fully compressible: Thrombus - None 6. Greater Saphenous Vein: Previously harvested. 7. Callaway Saphenous Vein: Compressibility - Fully compressible: thrombus - None 7.1. Calf - Proximal Diameter: 0.29cm. Mid Diameter: 0.25cm. Distal Diameter: 0.26cm. 7.2. Ankle - Diameter: 0.32cm OTHER FINDINGS: 1. No evidence of venous thrombosis in bilateral lower extremities. 2. Please refer to the above listed measurements, for vein size.
--- NOTE | 2017-11-19 14:54 | CP.PCM.PN ---
Subjective - Date & Time of Evaluation Date of Evaluation: 11/19/17 Time of Evaluation: 10:55 - Subjective Subjective: Vascular Surgery- Dr. Sawant Pt S&E at bedside this AM. No acute events overnight. Has come foot pain and tingling sensation. Pain well controlled. Denies N/V/D CP/SOB LOC/G[facility]ARDO Objective - Vital Signs/Intake and Output Vital Signs (last 24 hours): Temp Pulse Resp BP Pulse Ox 98.3 F 93 H 20 153/89 H 95 11/19/17 08:00 11/19/17 08:00 11/19/17 08:00 11/19/17 08:00 11/19/17 08:00 Intake and Output: 11/19/17 11/19/17 06:59 18:59 Intake Total 2340 Balance 2340 - Medications Medications: Current Medications Amantadine HCl (Amantadine 100 Mg Cap) 100 mg PO DAILY [facility] Last Admin: 11/19/17 12:31 Dose: 100 mg Amlodipine Besylate (Norvasc) 10 mg PO DAILY [facility] Last Admin: 11/19/17 10:40 Dose: 10 mg Aspirin (Ecotrin) 81 mg PO DAILY [facility] Last Admin: 11/18/17 10:11 Dose: 81 mg Enoxaparin Sodium (Lovenox) 30 mg SC 1000,2200 [facility] Last Admin: 11/17/17 10:49 Dose: Not Given Ergocalciferol (Drisdol 50,000 Intl Units Cap) 1 cap PO Q7D [facility] Last Admin: 11/17/17 09:59 Dose: Not Given Home Med (Patient's Own Medication) 1 tab PO DAILY [facility] Last Admin: 11/19/17 10:41 Dose: 1 tab Aztreonam 1 gm/ Sodium (Chloride) 100 mls @ 200 mls/hr IVPB Q8H [facility] Last Admin: 11/19/17 10:44 Dose: 200 mls/hr Clindamycin Phosphate 600 mg/ (Sodium Chloride) 54 mls @ 100 mls/hr IVPB Q8H [facility] Last Admin: 11/19/17 08:37 Dose: 100 mls/hr Dextrose/Sodium Chloride (Dextrose 5%/0.9% Ns 1000 Ml) 1,000 mls @ 100 mls/hr IV .Q10H [facility] Last Admin: 02/21/18 10:41 Dose: Not Given Insulin Aspart (Novolog) 0 unit SC ACHS [facility] PRN Reason: Protocol Last Admin: 11/19/17 12:30 Dose: 1 unit Losartan Potassium (Cozaar) 100 mg PO DAILY [facility] Last Admin: 11/19/17 10:40 Dose: 100 mg Metoprolol Tartrate (Lopressor) 50 mg PO BID [facility] Last Admin: 11/19/17 10:40 Dose: 50 mg Pantoprazole Sodium (Protonix Ec Tab) 40 mg PO DAILY [facility] Last Admin: 11/19/17 10:40 Dose: 40 mg Rosuvastatin Calcium (Crestor) 5 mg PO HS [facility] Last Admin: 11/18/17 21:19 Dose: 5 mg - Labs Labs: 11/18/17 07:47 11/18/17 07:47 - Constitutional Appears: Non-toxic, No Acute Distress - Eye Exam Eye Exam: EOMI. absent: Scleral icterus - ENT Exam ENT Exam: Mucous Membranes Moist - Respiratory Exam Respiratory Exam: NORMAL BREATHING PATTERN. absent: Accessory Muscle Use, Respiratory Distress - Cardiovascular Exam Cardiovascular Exam: +S1, +S2. absent: Bradycardia, Tachycardia - GI/Abdominal Exam GI & Abdominal Exam: Soft. absent: Firm, Guarding, Rigid, Tenderness - Neurological Exam Neurological Exam: Alert, Awake, Oriented x3 - Skin Skin Exam: Intact, Warm Assessment and Plan - Assessment and Plan (Free Text) Assessment: 62M s/p Right femoral and peroneal angioplasty, Right anterior tibial atherectomy POD#2 Plan: Podiatry plan for OR tomorrow Final read for LE vein mapping; short saphenous b/l no DVT, final measurements in official read; Possible bypass at a future date; not during this admission No further vascular intervention at this time discussed w/ Dr. Jese Alcantara PGY1
--- NOTE | 2017-11-19 18:21 | CP.PCM.PN ---
Subjective - Date & Time of Evaluation Date of Evaluation: 11/19/17 Time of Evaluation: 10:00 - Subjective Subjective: 62M s/p Right femoral and peroneal angioplasty, Right anterior tibial atherectomy POD#2 FOR OR IN AM FOR RIGHT 5TH DIGIT AMPUTATION DUE TO OSTEOMYELITIS MAY NEED BYPASS RLE IN FUTURE CONT IV ANTIBIOTICS DISCUSSED WITH DR ASHLEY COMBS Objective - Vital Signs/Intake and Output Vital Signs (last 24 hours): Temp Pulse Resp BP Pulse Ox 98.5 F 77 20 157/85 H 98 11/19/17 16:00 11/19/17 16:00 11/19/17 16:00 11/19/17 16:00 11/19/17 16:00 Intake and Output: 11/19/17 11/19/17 06:59 18:59 Intake Total 2340 1280 Balance 2340 1280 - Medications Medications: Current Medications Amantadine HCl (Amantadine 100 Mg Cap) 100 mg PO DAILY [facility] Last Admin: 11/19/17 12:31 Dose: 100 mg Amlodipine Besylate (Norvasc) 10 mg PO DAILY [facility] Last Admin: 11/19/17 10:40 Dose: 10 mg Aspirin (Ecotrin) 81 mg PO DAILY [facility] Last Admin: 11/18/17 10:11 Dose: 81 mg Enoxaparin Sodium (Lovenox) 30 mg SC 1000,2200 [facility] Last Admin: 11/17/17 10:49 Dose: Not Given Ergocalciferol (Drisdol 50,000 Intl Units Cap) 1 cap PO Q7D [facility] Last Admin: 11/17/17 09:59 Dose: Not Given Home Med (Patient's Own Medication) 1 tab PO DAILY [facility] Last Admin: 11/19/17 10:41 Dose: 1 tab Aztreonam 1 gm/ Sodium (Chloride) 100 mls @ 200 mls/hr IVPB Q8H [facility] Last Admin: 11/19/17 17:00 Dose: 200 mls/hr Clindamycin Phosphate 600 mg/ (Sodium Chloride) 54 mls @ 100 mls/hr IVPB Q8H [facility] Last Admin: 11/19/17 16:26 Dose: 100 mls/hr Dextrose/Sodium Chloride (Dextrose 5%/0.9% Ns 1000 Ml) 1,000 mls @ 100 mls/hr IV .Q10H [facility] Last Admin: 11/19/17 10:41 Dose: Not Given Insulin Aspart (Novolog) 0 unit SC ACHS [facility] PRN Reason: Protocol Last Admin: 11/19/17 17:05 Dose: 3 unit Losartan Potassium (Cozaar) 100 mg PO DAILY [facility] Last Admin: 11/19/17 10:40 Dose: 100 mg Metoprolol Tartrate (Lopressor) 50 mg PO BID [facility] Last Admin: 11/19/17 17:00 Dose: 50 mg Pantoprazole Sodium (Protonix Ec Tab) 40 mg PO DAILY [facility] Last Admin: 11/19/17 10:40 Dose: 40 mg Rosuvastatin Calcium (Crestor) 5 mg PO HS [facility] Last Admin: 11/18/17 21:19 Dose: 5 mg - Labs Labs: 11/18/17 07:47 11/18/17 07:47 - Constitutional Appears: Non-toxic, Chronically Ill - Head Exam Head Exam: NORMOCEPHALIC - Eye Exam Eye Exam: PERRL. absent: Scleral icterus - ENT Exam ENT Exam: Mucous Membranes Dry - Neck Exam Neck Exam: absent: Lymphadenopathy - Respiratory Exam Respiratory Exam: Decreased Breath Sounds - Cardiovascular Exam Cardiovascular Exam: REGULAR RHYTHM - GI/Abdominal Exam GI & Abdominal Exam: Distended, Soft - Rectal Exam Rectal Exam: Deferred - Exam Exam: NORMAL INSPECTION - Extremities Exam Extremities Exam: absent: Pedal Edema - Back Exam Back Exam: absent: CVA tenderness (L), CVA tenderness (R) - Neurological Exam Neurological Exam: Alert, Awake, Oriented x3 - Psychiatric Exam Psychiatric exam: Depressed - Skin Skin Exam: Dry Additional comments: ULCER RIGHT 5TH DIGIT PROBING TO BONE Assessment and Plan (1) Cellulitis Status: Acute (2) Diabetic foot ulcer Status: Acute (3) CAD (coronary artery disease) Status: Acute (4) CAD (coronary artery disease) of bypass graft Status: Acute (5) PVD (peripheral vascular disease) Status: Acute (6) PVD (peripheral vascular disease) with claudication Status: Acute (7) PVD (posterior vitreous detachment) Status: Acute - Assessment and Plan (Free Text) Assessment: 62M s/p Right femoral and peroneal angioplasty, Right anterior tibial atherectomy POD#2 FOR OR IN AM FOR RIGHT 5TH DIGIT AMPUTATION DUE TO OSTEOMYELITIS MAY NEED BYPASS RLE IN FUTURE CONT IV ANTIBIOTICS DISCUSSED WITH DR ASHLEY COMBS MAY NEED MELONY
[2017-11-19 21:38] LABS: INR 1.1; PROTHROMBIN TIME 11.8 SECONDS (9.7-12.2)
[2017-11-20] MEDS: Aztreonam 1 GM in Sodium Chloride 0.9% 100 ML IVPB SCH ×3 (01:01→17:09)
--- NOTE | 2017-11-20 07:20 | CP.PCM.PN ---
Subjective - Date & Time of Evaluation Date of Evaluation: 11/20/17 Time of Evaluation: 07:16 - Subjective Subjective: Podiatry Progress note for Dr. Manriquez 62 year old male was seen resting comfortably at bedside regarding right 5th digit ulceration. Patient is aware he is going for surgery this morning for a right 5th digit amputation. He denies any acute events overnight. Denies any n/ v/f/c/sob/cp. NPO status confirmed. Objective - Vital Signs/Intake and Output Vital Signs (last 24 hours): Temp Pulse Resp BP Pulse Ox 98.4 F 87 20 168/95 H 98 11/20/17 01:00 11/20/17 01:00 11/20/17 01:00 11/20/17 01:00 11/20/17 01:00 Intake and Output: 11/20/17 11/20/17 06:59 18:59 Intake Total 850 800 Balance 850 800 - Medications Medications: Current Medications Amantadine HCl (Amantadine 100 Mg Cap) 100 mg PO DAILY [facility] Last Admin: 11/19/17 12:31 Dose: 100 mg Amlodipine Besylate (Norvasc) 10 mg PO DAILY [facility] Last Admin: 11/19/17 10:40 Dose: 10 mg Aspirin (Ecotrin) 81 mg PO DAILY [facility] Last Admin: 11/18/17 10:11 Dose: 81 mg Enoxaparin Sodium (Lovenox) 30 mg SC 1000,2200 [facility] Last Admin: 11/17/17 10:49 Dose: Not Given Ergocalciferol (Drisdol 50,000 Intl Units Cap) 1 cap PO Q7D [facility] Last Admin: 11/17/17 09:59 Dose: Not Given Home Med (Patient's Own Medication) 1 tab PO DAILY [facility] Last Admin: 11/19/17 10:41 Dose: 1 tab Aztreonam 1 gm/ Sodium (Chloride) 100 mls @ 200 mls/hr IVPB Q8H [facility] Last Admin: 11/20/17 01:01 Dose: 200 mls/hr Clindamycin Phosphate 600 mg/ (Sodium Chloride) 54 mls @ 100 mls/hr IVPB Q8H [facility] Last Admin: 11/20/17 00:10 Dose: 100 mls/hr Insulin Aspart (Novolog) 0 unit SC ACHS [facility] PRN Reason: Protocol Last Admin: 11/19/17 21:26 Dose: Not Given Losartan Potassium (Cozaar) 100 mg PO DAILY [facility] Last Admin: 11/19/17 10:40 Dose: 100 mg Metoprolol Tartrate (Lopressor) 50 mg PO BID [facility] Last Admin: 11/19/17 17:00 Dose: 50 mg Pantoprazole Sodium (Protonix Ec Tab) 40 mg PO DAILY [facility] Last Admin: 11/19/17 10:40 Dose: 40 mg Rosuvastatin Calcium (Crestor) 5 mg PO HS [facility] Last Admin: 11/19/17 21:23 Dose: 5 mg - Labs Labs: 11/18/17 07:47 11/18/17 07:47 PT 11.8 SECONDS (9.7-12.2) 11/19/17 21:16 INR 1.1 11/19/17 21:16 APTT 33 SECONDS (21-34) 11/19/17 21:16 - Constitutional Appears: Well, Non-toxic, No Acute Distress - Extremities Exam Additional comments: Dressing c/d/i to right lower extremity - Neurological Exam Neurological Exam: Alert, Awake, Oriented x3 - Psychiatric Exam Psychiatric exam: Normal Affect, Normal Mood Assessment and Plan - Assessment and Plan (Free Text) Assessment: 62 year old diabetic male with right 5th digit ulcer Plan: Pt was seen and examined at bedside Pt NPO status was confirmed All pre-op testing and optimization in chart Pt has exhausted all conservative treatment at this time and is opting for surgical intervention Pt was explained procedure and post-operative course All pt's questions were answered to satisfaction No guarantees were made Pt understands all risks, benefits and complications of procedure Podiatry will cont to follow patient while in house Pt will follow-up with Dr. Manriquez upon d/c
[2017-11-20] MEDS ORDERED: ceFAZolin IV 1 gm in Dextrose 0 GM/0 ML BAG IVPB ONE (07:22)
[2017-11-20] MEDS ORDERED: Lidocaine 1% Inj (20ml) ONE (07:22)
[2017-11-20] MEDS ORDERED: Bupivacaine HCl 0.25% PF (10 ml) Inj ONE (07:22)
[2017-11-20] MEDS ORDERED: Bupivacaine HCl 0.5% PF (10 ml) Inj ONE (07:22)
[2017-11-20] MEDS ORDERED: Propofol 10 mg/ml Inj (20 ML) ONE (07:45)
[2017-11-20] MEDS ORDERED: Midazolam 2 MG/2 ML VIAL ONE (07:46)
[2017-11-20] MEDS: (Novolog) Insulin Aspart, Recombinant 100 u/ml 10 ml vial SC SCH ×4 (08:03→21:22)
[2017-11-20] MEDS ORDERED: HYDROmorphone 0.5 mg/0.5 ml ISec IVP PRN (08:45)
--- NOTE | 2017-11-20 08:55 | PCM.SURG1 ---
Surgeon's Initial Post Op Note - Surgeon's Notes Surgeon: Dr. Manriquez DPM Service Worker Helper: Dr. Arriaza DPM PGY-2 Type of Anesthesia: General LMA Anesthesia Administered By: Dr. Starkey Pre-Operative Diagnosis: right foot 5th digit gangrene Operative Findings: see dictation Post-Operative Diagnosis: same Operation Performed: right foot 5th digit amputation Specimen/Specimens Removed: right foot 5th digit Estimated Blood Loss: EBL {In ML}: 10 Blood Products Given: N/A Drains Used: No Drains Post-Op Condition: Good Date of Surgery/Procedure: 11/20/17 Time of Surgery/Procedure: 08:55
[2017-11-20] MEDS ORDERED: Oxycodone/Acetaminophen 5/325 mg Tab PO PRN ×2 (08:56)
--- NOTE | 2017-11-20 10:00 | RAD ---
PROCEDURE: Right Foot Radiographs. HISTORY: s/p right 5th digit amputation COMPARISON: 11/15/2017 FINDINGS: BONES: There has been an interval amputation at the 5th metatarsal phalangeal joint level. The 5th metatarsal old fracture proximal deformity is similar. No periosteal reaction or gross cortical destruction seen to suggest osteomyelitis. JOINTS: Fifth metatarsal phalangeal joint interval amputation SOFT TISSUES: Diffuse soft tissue prominence over lateral forefoot and amputation. Atherosclerotic vascular calcifications noted OTHER FINDINGS: None. IMPRESSION: Interval postsurgical changes as above. Old healed fracture deformity 5th metatarsal No periosteal reaction or cortical interruption to suggest osteomyelitis. Nonspecific soft tissue swelling. No gas-forming cellulitis appreciated
[2017-11-20 10:14] VITALS: RESP 20
--- NOTE | 2017-11-20 10:47 | CP.PCM.PN ---
Subjective - Date & Time of Evaluation Date of Evaluation: 11/20/17 Time of Evaluation: 07:20 - Subjective Subjective: Vascular Surgery Pt S&E, no acute events overnight. Podiatry to operate on foot this AM. No complaints at this time. Objective - Vital Signs/Intake and Output Vital Signs (last 24 hours): Temp Pulse Resp BP Pulse Ox 97.6 F 81 20 162/89 H 95 11/20/17 10:05 11/20/17 10:05 11/20/17 10:05 11/20/17 10:05 11/20/17 10:05 Intake and Output: 11/20/17 11/20/17 06:59 18:59 Intake Total 850 1250 Balance 850 1250 - Medications Medications: Current Medications Acetaminophen (Tylenol 325mg Tab) 650 mg PO Q6 PRN PRN Reason: Pain, Mild (1-3) Amantadine HCl (Amantadine 100 Mg Cap) 100 mg PO DAILY [facility] Last Admin: 11/19/17 12:31 Dose: 100 mg Amlodipine Besylate (Norvasc) 10 mg PO DAILY [facility] Last Admin: 11/19/17 10:40 Dose: 10 mg Aspirin (Ecotrin) 81 mg PO DAILY [facility] Last Admin: 11/18/17 10:11 Dose: 81 mg Enoxaparin Sodium (Lovenox) 30 mg SC 1000,2200 [facility] Last Admin: 11/17/17 10:49 Dose: Not Given Ergocalciferol (Drisdol 50,000 Intl Units Cap) 1 cap PO Q7D [facility] Last Admin: 11/17/17 09:59 Dose: Not Given Home Med (Patient's Own Medication) 1 tab PO DAILY [facility] Last Admin: 11/19/17 10:41 Dose: 1 tab Hydromorphone HCl (Dilaudid) 0.5 mg IVP Q10M PRN PRN Reason: Pain, severe (8-10) Stop: 11/20/17 10:45 Aztreonam 1 gm/ Sodium (Chloride) 100 mls @ 200 mls/hr IVPB Q8H [facility] Last Admin: 11/20/17 01:01 Dose: 200 mls/hr Clindamycin Phosphate 600 mg/ (Sodium Chloride) 54 mls @ 100 mls/hr IVPB Q8H [facility] Last Admin: 11/20/17 08:15 Dose: 50 mls Insulin Aspart (Novolog) 0 unit SC ACHS [facility] PRN Reason: Protocol Last Admin: 11/20/17 08:03 Dose: Not Given Losartan Potassium (Cozaar) 100 mg PO DAILY [facility] Last Admin: 11/19/17 10:40 Dose: 100 mg Metoprolol Tartrate (Lopressor) 50 mg PO BID [facility] Last Admin: 11/19/17 17:00 Dose: 50 mg Ondansetron HCl (Zofran Inj) 4 mg IVP ONCE PRN PRN Reason: Nausea/Vomiting Stop: 11/20/17 10:46 Oxycodone/Acetaminophen (Percocet 5/325 Mg Tab) 1 tab PO Q6H PRN PRN Reason: Pain, moderate (4-7) Stop: 11/23/17 08:57 Oxycodone/Acetaminophen (Percocet 5/325 Mg Tab) 2 tab PO Q6H PRN PRN Reason: Pain, severe (8-10) Stop: 11/23/17 08:57 Pantoprazole Sodium (Protonix Ec Tab) 40 mg PO DAILY [facility] Last Admin: 11/19/17 10:40 Dose: 40 mg Rosuvastatin Calcium (Crestor) 5 mg PO HS [facility] Last Admin: 11/19/17 21:23 Dose: 5 mg - Labs Labs: 11/18/17 07:47 11/18/17 07:47 PT 11.8 SECONDS (9.7-12.2) 11/19/17 21:16 INR 1.1 11/19/17 21:16 APTT 33 SECONDS (21-34) 11/19/17 21:16 - Constitutional Appears: Non-toxic, No Acute Distress - Head Exam Head Exam: ATRAUMATIC, NORMOCEPHALIC - Eye Exam Eye Exam: EOMI. absent: Scleral icterus - Respiratory Exam Respiratory Exam: NORMAL BREATHING PATTERN. absent: Respiratory Distress - Neurological Exam Neurological Exam: Alert, Awake, Oriented x3 - Skin Skin Exam: Dry, Warm Assessment and Plan - Assessment and Plan (Free Text) Assessment: 62M s/p Right femoral and peroneal angioplasty, Right anterior tibial atherectomy POD#3 Plan: Podiatry OR today No further vascular intervention at this time Please reconsult if needed D/W Dr. Jese Ham PGY4
[2017-11-20] MEDS: Pantoprazole 40 mg EC Tab PO SCH (10:55)
[2017-11-20] MEDS: TRIUMEQ PO SCH (10:55)
--- NOTE | 2017-11-20 12:36 | CP.PCM.PN ---
Subjective - Date & Time of Evaluation Date of Evaluation: 11/20/17 Time of Evaluation: 12:34 - Subjective Subjective: POST OP, AMPUTATION RT LITTLE TOE. STABLE. AFEBRILE. BS OK. Objective - Vital Signs/Intake and Output Vital Signs (last 24 hours): Temp Pulse Resp BP Pulse Ox 97.6 F 81 20 162/89 H 95 11/20/17 10:05 11/20/17 10:05 11/20/17 10:05 11/20/17 10:05 11/20/17 10:05 Intake and Output: 11/20/17 11/20/17 06:59 18:59 Intake Total 850 1250 Balance 850 1250 - Medications Medications: Current Medications Acetaminophen (Tylenol 325mg Tab) 650 mg PO Q6 PRN PRN Reason: Pain, Mild (1-3) Amantadine HCl (Amantadine 100 Mg Cap) 100 mg PO DAILY [facility] Last Admin: 11/20/17 10:55 Dose: 100 mg Amlodipine Besylate (Norvasc) 10 mg PO DAILY [facility] Last Admin: 11/20/17 10:55 Dose: 10 mg Aspirin (Ecotrin) 81 mg PO DAILY [facility] Last Admin: 11/18/17 10:11 Dose: 81 mg Enoxaparin Sodium (Lovenox) 30 mg SC 1000,2200 [facility] Last Admin: 11/17/17 10:49 Dose: Not Given Ergocalciferol (Drisdol 50,000 Intl Units Cap) 1 cap PO Q7D [facility] Last Admin: 11/17/17 09:59 Dose: Not Given Home Med (Patient's Own Medication) 1 tab PO DAILY [facility] Last Admin: 11/20/17 10:55 Dose: 1 tab Aztreonam 1 gm/ Sodium (Chloride) 100 mls @ 200 mls/hr IVPB Q8H [facility] Last Admin: 11/20/17 10:55 Dose: 200 mls/hr Clindamycin Phosphate 600 mg/ (Sodium Chloride) 54 mls @ 100 mls/hr IVPB Q8H [facility] Last Admin: 11/20/17 08:15 Dose: 50 mls Insulin Aspart (Novolog) 0 unit SC ACHS [facility] PRN Reason: Protocol Last Admin: 11/20/17 08:03 Dose: Not Given Losartan Potassium (Cozaar) 100 mg PO DAILY [facility] Last Admin: 11/20/17 10:55 Dose: 100 mg Metoprolol Tartrate (Lopressor) 50 mg PO BID [facility] Last Admin: 11/20/17 10:55 Dose: 50 mg Oxycodone/Acetaminophen (Percocet 5/325 Mg Tab) 1 tab PO Q6H PRN PRN Reason: Pain, moderate (4-7) Stop: 11/23/17 08:57 Oxycodone/Acetaminophen (Percocet 5/325 Mg Tab) 2 tab PO Q6H PRN PRN Reason: Pain, severe (8-10) Stop: 11/23/17 08:57 Pantoprazole Sodium (Protonix Ec Tab) 40 mg PO DAILY [facility] Last Admin: 11/20/17 10:55 Dose: 40 mg Rosuvastatin Calcium (Crestor) 5 mg PO HS [facility] Last Admin: 11/19/17 21:23 Dose: 5 mg - Labs Labs: 11/18/17 07:47 11/18/17 07:47 PT 11.8 SECONDS (9.7-12.2) 11/19/17 21:16 INR 1.1 11/19/17 21:16 APTT 33 SECONDS (21-34) 11/19/17 21:16 - Constitutional Appears: Chronically Ill - Eye Exam Eye Exam: Normal appearance, PERRL - ENT Exam ENT Exam: Normal Exam - Respiratory Exam Respiratory Exam: Clear to Ausculation Bilateral, NORMAL BREATHING PATTERN - Cardiovascular Exam Cardiovascular Exam: REGULAR RHYTHM, +S1, +S2 - GI/Abdominal Exam GI & Abdominal Exam: Soft, Normal Bowel Sounds - Extremities Exam Extremities Exam: Full ROM, Normal Capillary Refill, Normal Inspection. absent : Joint Swelling, Pedal Edema - Back Exam Back Exam: NORMAL INSPECTION - Neurological Exam Neurological Exam: Alert, Awake, CN II-XII Intact, Normal Gait, Oriented x3 Assessment and Plan - Assessment and Plan (Free Text) Assessment: GANGRENE RT LITTLE TOE. Plan: CT PRESENT TREATMENT.
--- NOTE | 2017-11-20 16:49 | CARD ---
APPROVED REPORT EKG Measurement Heart [id number] ID [id number] <Conclusion> Normal sinus rhythm Normal ECG
--- NOTE | 2017-11-20 18:56 | CP.PCM.PN ---
Subjective - Date & Time of Evaluation Date of Evaluation: 11/20/17 Time of Evaluation: 10:00 - Subjective Subjective: c/o pain s/p amputation IV antibiotics renewed prognosis guarded for limb salvage Objective - Vital Signs/Intake and Output Vital Signs (last 24 hours): Temp Pulse Resp BP Pulse Ox 98.1 F 75 20 128/79 97 11/20/17 15:00 11/20/17 15:00 11/20/17 15:00 11/20/17 15:00 11/20/17 15:00 Intake and Output: 11/20/17 11/20/17 06:59 18:59 Intake Total 850 1800 Balance 850 1800 - Medications Medications: Current Medications Acetaminophen (Tylenol 325mg Tab) 650 mg PO Q6 PRN PRN Reason: Pain, Mild (1-3) Amantadine HCl (Amantadine 100 Mg Cap) 100 mg PO DAILY [facility] Last Admin: 11/20/17 10:55 Dose: 100 mg Amlodipine Besylate (Norvasc) 10 mg PO DAILY [facility] Last Admin: 11/20/17 10:55 Dose: 10 mg Aspirin (Ecotrin) 81 mg PO DAILY [facility] Last Admin: 11/18/17 10:11 Dose: 81 mg Enoxaparin Sodium (Lovenox) 30 mg SC 1000,2200 [facility] Last Admin: 11/17/17 10:49 Dose: Not Given Ergocalciferol (Drisdol 50,000 Intl Units Cap) 1 cap PO Q7D [facility] Last Admin: 11/17/17 09:59 Dose: Not Given Home Med (Patient's Own Medication) 1 tab PO DAILY [facility] Last Admin: 11/20/17 10:55 Dose: 1 tab Aztreonam 1 gm/ Sodium (Chloride) 100 mls @ 200 mls/hr IVPB Q8H [facility] Last Admin: 11/20/17 17:09 Dose: 200 mls/hr Clindamycin Phosphate 600 mg/ (Sodium Chloride) 54 mls @ 100 mls/hr IVPB Q8H [facility] Last Admin: 11/20/17 16:05 Dose: 100 mls/hr Insulin Aspart (Novolog) 0 unit SC ACHS [facility] PRN Reason: Protocol Last Admin: 11/20/17 17:07 Dose: 3 unit Losartan Potassium (Cozaar) 100 mg PO DAILY [facility] Last Admin: 11/20/17 10:55 Dose: 100 mg Metoprolol Tartrate (Lopressor) 50 mg PO BID [facility] Last Admin: 11/20/17 17:28 Dose: 50 mg Oxycodone/Acetaminophen (Percocet 5/325 Mg Tab) 1 tab PO Q6H PRN PRN Reason: Pain, moderate (4-7) Stop: 11/23/17 08:57 Oxycodone/Acetaminophen (Percocet 5/325 Mg Tab) 2 tab PO Q6H PRN PRN Reason: Pain, severe (8-10) Stop: 11/23/17 08:57 Pantoprazole Sodium (Protonix Ec Tab) 40 mg PO DAILY [facility] Last Admin: 11/20/17 10:55 Dose: 40 mg Rosuvastatin Calcium (Crestor) 5 mg PO HS [facility] Last Admin: 11/19/17 21:23 Dose: 5 mg - Labs Labs: 11/18/17 07:47 11/18/17 07:47 PT 11.8 SECONDS (9.7-12.2) 11/19/17 21:16 INR 1.1 11/19/17 21:16 APTT 33 SECONDS (21-34) 11/19/17 21:16 - Constitutional Appears: Non-toxic, Chronically Ill - Head Exam Head Exam: NORMOCEPHALIC - Eye Exam Eye Exam: PERRL - ENT Exam ENT Exam: Mucous Membranes Dry - Neck Exam Neck Exam: absent: Lymphadenopathy - Respiratory Exam Respiratory Exam: Decreased Breath Sounds - Cardiovascular Exam Cardiovascular Exam: REGULAR RHYTHM - GI/Abdominal Exam GI & Abdominal Exam: Distended - Rectal Exam Rectal Exam: Deferred - Exam Exam: NORMAL INSPECTION - Extremities Exam Extremities Exam: absent: Pedal Edema - Back Exam Back Exam: absent: CVA tenderness (L), CVA tenderness (R) Assessment and Plan (1) Cellulitis Status: Acute (2) Diabetic foot ulcer Status: Acute (3) CAD (coronary artery disease) Status: Acute (4) CAD (coronary artery disease) of bypass graft Status: Acute (5) PVD (peripheral vascular disease) Status: Acute (6) PVD (peripheral vascular disease) with claudication Status: Acute (7) PVD (posterior vitreous detachment) Status: Acute - Assessment and Plan (Free Text) Assessment: s/p amputation IV antibiotics renewed prognosis guarded for limb salvage
[2017-11-20] MEDS: Enoxaparin 30 mg Syringe SC SCH (21:19)
--- NOTE | 2017-11-20 23:14 | OP ---
PROCEDURE DATE: 11/20/2017 SURGEON: Loco Manriquez DPM INVASIVE CARDIOLOGIST: Temitope Arriaza DPM, PGY2. ANESTHESIOLOGIST: Dr. Lalito SOTO ANESTHESIA: LMA with local. PREOPERATIVE DIAGNOSIS: Right foot fifth digit gangrene. POSTOPERATIVE DIAGNOSIS: Right foot fifth digit gangrene. PROCEDURE: Right foot fifth digit amputation. INDICATION: The patient is a 62-year-old male with the above mentioned diagnosis. The patient has exhausted all conservative treatments at this time and now requires surgical intervention. The patient signed the consent after careful explanation of risks, benefits, complications, and alternatives for the surgical procedure. No guarantees were given or implied. NPO status was confirmed prior to bringing the patient to the operating room. PREPARATION: The patient was brought into the operating room and placed on the operating room table on the supine position. A time-out was performed for correct identification of the patient and procedure. The patient received a total of 20 mL of 1:1 mixture of 1% lidocaine plain and 0.5% Marcaine plain in a local block fashion to the patient's right foot. The right foot was then prepped and draped in the usual sterile manner. No tourniquet was used during the procedure. PROCEDURE: Attention was directed to the right foot fifth digit where a racquet-type circumferential incision was made around the fifth digit using a #15 blade. The incision was extended down through the subcutaneous tissue to the level of bone. Using a bone clamp to stabilize the digit, the fifth digit was then disarticulated from the right foot at the level of the metatarsophalangeal joint. Abundance of tough and soft tissue was then passed off the field and sent for pathology. Next, the surgical site was then irrigated with copious amount of normal sterile saline. The surgical site was then reapproximated with #3-0 nylon in a simple suture technique. The foot was then dressed with Xeroform, 4x4s, and lastly Kerlix. POSTOPERATIVE CONDITION: The patient tolerated the anesthesia and procedure well with no apparent complications or complaints. The patient will be followed by Podiatry while the patient is in-house and upon discharge, the patient will follow up with Dr. Manriquez. Temitope Arriaza DPM Loco Manriquez DPM [facility] # [id number]
[2017-11-21] MEDS: Aztreonam 1 GM in Sodium Chloride 0.9% 100 ML IVPB SCH ×3 (01:17→18:18)
[2017-11-21] MEDS: (Novolog) Insulin Aspart, Recombinant 100 u/ml 10 ml vial SC SCH ×4 (07:30→21:26)
[2017-11-21] MEDS: Enoxaparin 30 mg Syringe SC SCH ×2 (09:30→21:27)
[2017-11-21] MEDS: Pantoprazole 40 mg EC Tab PO SCH (09:35)
--- NOTE | 2017-11-21 09:35 | CP.PCM.PN ---
Subjective - Date & Time of Evaluation Date of Evaluation: 11/21/17 Time of Evaluation: 09:35 - Subjective Subjective: Podiatry Progress note - Dr. Manriquez 62 year old male patient was seen at bedside 1 day s/p right 5th digit amputation. Patient is AAOx3 and is in NAD. Patient reports of no acute overnight events. Denies any n/v/f/c/sob/cp. Objective - Vital Signs/Intake and Output Vital Signs (last 24 hours): Temp Pulse Resp BP Pulse Ox 98.4 F 87 20 152/81 H 98 11/21/17 08:12 11/21/17 08:12 11/21/17 08:12 11/21/17 08:12 11/21/17 08:12 Intake and Output: 11/21/17 11/21/17 06:59 18:59 Intake Total 440 Balance 440 - Medications Medications: Current Medications Acetaminophen (Tylenol 325mg Tab) 650 mg PO Q6 PRN PRN Reason: Pain, Mild (1-3) Amantadine HCl (Amantadine 100 Mg Cap) 100 mg PO DAILY [facility] Last Admin: 11/20/17 10:55 Dose: 100 mg Amlodipine Besylate (Norvasc) 10 mg PO DAILY [facility] Last Admin: 11/21/17 09:30 Dose: 10 mg Aspirin (Ecotrin) 81 mg PO DAILY [facility] Last Admin: 11/21/17 09:30 Dose: 81 mg Enoxaparin Sodium (Lovenox) 30 mg SC 1000,2200 [facility] Last Admin: 11/21/17 09:30 Dose: 30 mg Ergocalciferol (Drisdol 50,000 Intl Units Cap) 1 cap PO Q7D [facility] Last Admin: 11/17/17 09:59 Dose: Not Given Home Med (Patient's Own Medication) 1 tab PO DAILY [facility] Last Admin: 11/20/17 10:55 Dose: 1 tab Aztreonam 1 gm/ Sodium (Chloride) 100 mls @ 200 mls/hr IVPB Q8H [facility] Last Admin: 11/21/17 09:00 Dose: 200 mls/hr Clindamycin Phosphate 600 mg/ (Sodium Chloride) 54 mls @ 100 mls/hr IVPB Q8H [facility] Last Admin: 11/21/17 08:00 Dose: 100 mls/hr Insulin Aspart (Novolog) 0 unit SC ACHS [facility] PRN Reason: Protocol Last Admin: 11/20/17 21:22 Dose: Not Given Losartan Potassium (Cozaar) 100 mg PO DAILY [facility] Last Admin: 11/21/17 09:30 Dose: 100 mg Metoprolol Tartrate (Lopressor) 50 mg PO BID [facility] Last Admin: 11/20/17 17:28 Dose: 50 mg Oxycodone/Acetaminophen (Percocet 5/325 Mg Tab) 1 tab PO Q6H PRN PRN Reason: Pain, moderate (4-7) Stop: 11/23/17 08:57 Oxycodone/Acetaminophen (Percocet 5/325 Mg Tab) 2 tab PO Q6H PRN PRN Reason: Pain, severe (8-10) Stop: 11/23/17 08:57 Pantoprazole Sodium (Protonix Ec Tab) 40 mg PO DAILY [facility] Last Admin: 11/21/17 09:35 Dose: 40 mg Rosuvastatin Calcium (Crestor) 5 mg PO HS [facility] Last Admin: 11/20/17 21:15 Dose: 5 mg - Labs Labs: 11/18/17 07:47 11/18/17 07:47 PT 11.8 SECONDS (9.7-12.2) 11/19/17 21:16 INR 1.1 11/19/17 21:16 APTT 33 SECONDS (21-34) 11/19/17 21:16 - Constitutional Appears: Well, Non-toxic, No Acute Distress - Extremities Exam Additional comments: Lower extremity focused exam: VASC: DP and PT pulses are non-palpable. CFT > 4 seconds to all digits, Skin temperature warm to cool from proximal to distal. mild non-pitting edema noted at the distal aspect of the foot on the right DERM: surgical site noted to the lateral aspect of the right foot, suture intact , no signs of dehiscens noted, no malodor, no purulence, no drainage, no acute signs of infection noted. NEURO: Epicritic and protective sensation mildly diminished ORTHO: mild tenderness on palpation of the right foot surgical site - Neurological Exam Neurological Exam: Alert, Awake, Oriented x3 - Psychiatric Exam Psychiatric exam: Normal Affect, Normal Mood Assessment and Plan - Assessment and Plan (Free Text) Assessment: 62 year old male 1 day s/p right 5th digit amputation Plan: Patient seen and evaluated with attending Dr. Manriquez Labs, vitals and charts reviewed - afebrile post op xrays IMPRESSION: Interval postsurgical changes as above.Old healed fracture deformity 5th metatarsal. No periosteal reaction or cortical interruption to suggest osteomyelitis. Nonspecific soft tissue swelling. No gas -forming cellulitis appreciated right foot dressed with xeroform, DSD Patient to cont IV abx per ID Upon d/c patient to follow up with Dr. Manriquez PWB to heel in surgical shoe Rx given for standard cane Podiatry to follow patient while in-house
[2017-11-21] MEDS: TRIUMEQ PO SCH (09:40)
--- NOTE | 2017-11-21 13:04 | CP.PCM.PN ---
Subjective - Date & Time of Evaluation Date of Evaluation: 11/21/17 Time of Evaluation: 13:02 - Subjective Subjective: PODIETRY EVAL NOTED. STABLE MEDICALLY. FOR IV ABTS. Objective - Vital Signs/Intake and Output Vital Signs (last 24 hours): Temp Pulse Resp BP Pulse Ox 98.4 F 87 20 152/81 H 98 11/21/17 08:12 11/21/17 08:12 11/21/17 08:12 11/21/17 08:12 11/21/17 08:12 Intake and Output: 11/21/17 11/21/17 06:59 18:59 Intake Total 440 Balance 440 - Medications Medications: Current Medications Acetaminophen (Tylenol 325mg Tab) 650 mg PO Q6 PRN PRN Reason: Pain, Mild (1-3) Amantadine HCl (Amantadine 100 Mg Cap) 100 mg PO DAILY [facility] Last Admin: 11/21/17 09:40 Dose: 100 mg Amlodipine Besylate (Norvasc) 10 mg PO DAILY [facility] Last Admin: 11/21/17 09:30 Dose: 10 mg Aspirin (Ecotrin) 81 mg PO DAILY [facility] Last Admin: 11/21/17 09:30 Dose: 81 mg Enoxaparin Sodium (Lovenox) 30 mg SC 1000,2200 [facility] Last Admin: 11/21/17 09:30 Dose: 30 mg Ergocalciferol (Drisdol 50,000 Intl Units Cap) 1 cap PO Q7D [facility] Last Admin: 11/17/17 09:59 Dose: Not Given Home Med (Patient's Own Medication) 1 tab PO DAILY [facility] Last Admin: 11/21/17 09:40 Dose: 1 tab Aztreonam 1 gm/ Sodium (Chloride) 100 mls @ 200 mls/hr IVPB Q8H [facility] Last Admin: 11/21/17 09:00 Dose: 200 mls/hr Clindamycin Phosphate 600 mg/ (Sodium Chloride) 54 mls @ 100 mls/hr IVPB Q8H [facility] Last Admin: 11/21/17 08:00 Dose: 100 mls/hr Insulin Aspart (Novolog) 0 unit SC ACHS [facility] PRN Reason: Protocol Last Admin: 11/21/17 11:30 Dose: 3 unit Losartan Potassium (Cozaar) 100 mg PO DAILY [facility] Last Admin: 11/21/17 09:30 Dose: 100 mg Metoprolol Tartrate (Lopressor) 50 mg PO BID [facility] Last Admin: 11/21/17 10:00 Dose: 50 mg Oxycodone/Acetaminophen (Percocet 5/325 Mg Tab) 1 tab PO Q6H PRN PRN Reason: Pain, moderate (4-7) Stop: 11/23/17 08:57 Oxycodone/Acetaminophen (Percocet 5/325 Mg Tab) 2 tab PO Q6H PRN PRN Reason: Pain, severe (8-10) Stop: 11/23/17 08:57 Pantoprazole Sodium (Protonix Ec Tab) 40 mg PO DAILY [facility] Last Admin: 11/21/17 09:35 Dose: 40 mg Rosuvastatin Calcium (Crestor) 5 mg PO HS [facility] Last Admin: 11/20/17 21:15 Dose: 5 mg - Labs Labs: 11/18/17 07:47 11/18/17 07:47 PT 11.8 SECONDS (9.7-12.2) 11/19/17 21:16 INR 1.1 11/19/17 21:16 APTT 33 SECONDS (21-34) 11/19/17 21:16 - Constitutional Appears: No Acute Distress, Chronically Ill - Eye Exam Eye Exam: PERRL - ENT Exam ENT Exam: Normal Exam - Neck Exam Neck Exam: Normal Inspection - Respiratory Exam Respiratory Exam: Clear to Ausculation Bilateral, NORMAL BREATHING PATTERN - Cardiovascular Exam Cardiovascular Exam: REGULAR RHYTHM, +S1, +S2 - GI/Abdominal Exam GI & Abdominal Exam: Soft, Normal Bowel Sounds - Extremities Exam Extremities Exam: Full ROM, Normal Capillary Refill, Normal Inspection. absent : Joint Swelling, Pedal Edema - Neurological Exam Neurological Exam: Alert, Awake, CN II-XII Intact, Normal Gait, Oriented x3 Assessment and Plan - Assessment and Plan (Free Text) Assessment: AMPUTATION RT 5TH TOE. Plan: DISCUSS WITH DR. PARIS FOR FURTHER MANAGEMENT.
--- NOTE | 2017-11-21 18:07 | CP.PCM.PN ---
Subjective - Date & Time of Evaluation Date of Evaluation: 11/21/17 Time of Evaluation: 09:00 - Subjective Subjective: improving on IV rx for possible d/c on orals on Friday once cleared by vascular and podiatry cont IV rx for now Objective - Vital Signs/Intake and Output Vital Signs (last 24 hours): Temp Pulse Resp BP Pulse Ox 99.1 F 80 20 155/84 H 96 11/21/17 16:00 11/21/17 16:00 11/21/17 16:00 11/21/17 16:00 11/21/17 16:00 Intake and Output: 11/21/17 11/21/17 06:59 18:59 Intake Total 440 Balance 440 - Medications Medications: Current Medications Acetaminophen (Tylenol 325mg Tab) 650 mg PO Q6 PRN PRN Reason: Pain, Mild (1-3) Amantadine HCl (Amantadine 100 Mg Cap) 100 mg PO DAILY [facility] Last Admin: 11/21/17 09:40 Dose: 100 mg Amlodipine Besylate (Norvasc) 10 mg PO DAILY [facility] Last Admin: 11/21/17 09:30 Dose: 10 mg Aspirin (Ecotrin) 81 mg PO DAILY [facility] Last Admin: 11/21/17 09:30 Dose: 81 mg Enoxaparin Sodium (Lovenox) 30 mg SC 1000,2200 [facility] Last Admin: 11/21/17 09:30 Dose: 30 mg Ergocalciferol (Drisdol 50,000 Intl Units Cap) 1 cap PO Q7D [facility] Last Admin: 11/17/17 09:59 Dose: Not Given Home Med (Patient's Own Medication) 1 tab PO DAILY [facility] Last Admin: 11/21/17 09:40 Dose: 1 tab Aztreonam 1 gm/ Sodium (Chloride) 100 mls @ 200 mls/hr IVPB Q8H [facility] Last Admin: 11/21/17 09:00 Dose: 200 mls/hr Clindamycin Phosphate 600 mg/ (Sodium Chloride) 54 mls @ 100 mls/hr IVPB Q8H [facility] Last Admin: 11/21/17 08:00 Dose: 100 mls/hr Insulin Aspart (Novolog) 0 unit SC ACHS [facility] PRN Reason: Protocol Last Admin: 11/21/17 11:30 Dose: 3 unit Losartan Potassium (Cozaar) 100 mg PO DAILY [facility] Last Admin: 11/21/17 09:30 Dose: 100 mg Metoprolol Tartrate (Lopressor) 50 mg PO BID [facility] Last Admin: 11/21/17 10:00 Dose: 50 mg Oxycodone/Acetaminophen (Percocet 5/325 Mg Tab) 1 tab PO Q6H PRN PRN Reason: Pain, moderate (4-7) Stop: 11/23/17 08:57 Oxycodone/Acetaminophen (Percocet 5/325 Mg Tab) 2 tab PO Q6H PRN PRN Reason: Pain, severe (8-10) Stop: 11/23/17 08:57 Pantoprazole Sodium (Protonix Ec Tab) 40 mg PO DAILY [facility] Last Admin: 11/21/17 09:35 Dose: 40 mg Rosuvastatin Calcium (Crestor) 5 mg PO HS [facility] Last Admin: 11/20/17 21:15 Dose: 5 mg - Labs Labs: 11/18/17 07:47 11/18/17 07:47 PT 11.8 SECONDS (9.7-12.2) 11/19/17 21:16 INR 1.1 11/19/17 21:16 APTT 33 SECONDS (21-34) 11/19/17 21:16 - Constitutional Appears: Non-toxic, Chronically Ill - Head Exam Head Exam: NORMOCEPHALIC - Eye Exam Eye Exam: PERRL - ENT Exam ENT Exam: Mucous Membranes Dry - Neck Exam Neck Exam: absent: Lymphadenopathy - Respiratory Exam Respiratory Exam: Decreased Breath Sounds - Cardiovascular Exam Cardiovascular Exam: REGULAR RHYTHM - GI/Abdominal Exam GI & Abdominal Exam: Distended, Soft - Rectal Exam Rectal Exam: Deferred - Exam Exam: NORMAL INSPECTION - Extremities Exam Extremities Exam: Pedal Edema, Tenderness. absent: Calf Tenderness - Back Exam Back Exam: absent: CVA tenderness (L), CVA tenderness (R) - Neurological Exam Neurological Exam: Alert, Awake, Oriented x3 Neuro motor strength exam: Left Upper Extremity: 4, Right Upper Extremity: 4, Left Lower Extremity: 4, Right Lower Extremity: 4 - Psychiatric Exam Psychiatric exam: Depressed - Skin Skin Exam: Dry Assessment and Plan (1) Cellulitis Status: Acute (2) Diabetic foot ulcer Status: Acute (3) CAD (coronary artery disease) Status: Acute (4) CAD (coronary artery disease) of bypass graft Status: Acute (5) PVD (peripheral vascular disease) Status: Acute (6) PVD (peripheral vascular disease) with claudication Status: Acute (7) PVD (posterior vitreous detachment) Status: Acute - Assessment and Plan (Free Text) Assessment: cont iv rx for OM right foot
[2017-11-22] MEDS: Aztreonam 1 GM in Sodium Chloride 0.9% 100 ML IVPB SCH ×3 (01:32→17:35)
[2017-11-22] MEDS: (Novolog) Insulin Aspart, Recombinant 100 u/ml 10 ml vial SC SCH ×4 (07:30→21:33)
[2017-11-22] MEDS: TRIUMEQ PO SCH (09:22)
[2017-11-22] MEDS: Enoxaparin 30 mg Syringe SC SCH ×2 (09:28→21:18)
[2017-11-22] MEDS: Pantoprazole 40 mg EC Tab PO SCH (09:36)
--- NOTE | 2017-11-22 10:20 | CP.PCM.PN ---
Subjective - Date & Time of Evaluation Date of Evaluation: 11/22/17 Time of Evaluation: 10:19 - Subjective Subjective: DIABETIC FOOT ULCER. AFEBRILE. Objective - Vital Signs/Intake and Output Vital Signs (last 24 hours): Temp Pulse Resp BP Pulse Ox 97.8 F 90 20 136/79 96 11/22/17 09:21 11/22/17 09:21 11/22/17 09:21 11/22/17 09:21 11/22/17 09:21 Intake and Output: 11/22/17 11/22/17 06:59 18:59 Intake Total 980 Balance 980 - Medications Medications: Current Medications Acetaminophen (Tylenol 325mg Tab) 650 mg PO Q6 PRN PRN Reason: Pain, Mild (1-3) Amantadine HCl (Amantadine 100 Mg Cap) 100 mg PO DAILY [facility] Last Admin: 11/22/17 09:22 Dose: 100 mg Amlodipine Besylate (Norvasc) 10 mg PO DAILY [facility] Last Admin: 11/22/17 09:28 Dose: 10 mg Aspirin (Ecotrin) 81 mg PO DAILY [facility] Last Admin: 11/22/17 09:28 Dose: 81 mg Enoxaparin Sodium (Lovenox) 30 mg SC 1000,2200 [facility] Last Admin: 11/22/17 09:28 Dose: 30 mg Ergocalciferol (Drisdol 50,000 Intl Units Cap) 1 cap PO Q7D [facility] Last Admin: 11/17/17 09:59 Dose: Not Given Home Med (Patient's Own Medication) 1 tab PO DAILY [facility] Last Admin: 11/22/17 09:22 Dose: 1 tab Aztreonam 1 gm/ Sodium (Chloride) 100 mls @ 200 mls/hr IVPB Q8H [facility] Last Admin: 11/22/17 09:32 Dose: 200 mls/hr Clindamycin Phosphate 600 mg/ (Sodium Chloride) 54 mls @ 100 mls/hr IVPB Q8H [facility] Last Admin: 11/22/17 08:00 Dose: 100 mls/hr Insulin Aspart (Novolog) 0 unit SC ACHS [facility] PRN Reason: Protocol Last Admin: 11/22/17 07:30 Dose: 1 unit Losartan Potassium (Cozaar) 100 mg PO DAILY [facility] Last Admin: 11/22/17 09:28 Dose: 100 mg Metoprolol Tartrate (Lopressor) 50 mg PO BID [facility] Last Admin: 11/22/17 09:31 Dose: 50 mg Oxycodone/Acetaminophen (Percocet 5/325 Mg Tab) 1 tab PO Q6H PRN PRN Reason: Pain, moderate (4-7) Stop: 11/23/17 08:57 Oxycodone/Acetaminophen (Percocet 5/325 Mg Tab) 2 tab PO Q6H PRN PRN Reason: Pain, severe (8-10) Stop: 11/23/17 08:57 Pantoprazole Sodium (Protonix Ec Tab) 40 mg PO DAILY [facility] Last Admin: 11/22/17 09:36 Dose: 40 mg Rosuvastatin Calcium (Crestor) 5 mg PO HS [facility] Last Admin: 11/21/17 21:27 Dose: 5 mg - Labs Labs: 11/18/17 07:47 11/18/17 07:47 PT 11.8 SECONDS (9.7-12.2) 11/19/17 21:16 INR 1.1 11/19/17 21:16 APTT 33 SECONDS (21-34) 11/19/17 21:16 - Constitutional Appears: Chronically Ill - Eye Exam Eye Exam: PERRL - ENT Exam ENT Exam: Mucous Membranes Moist - Neck Exam Neck Exam: Normal Inspection - Respiratory Exam Respiratory Exam: Clear to Ausculation Bilateral, NORMAL BREATHING PATTERN - Cardiovascular Exam Cardiovascular Exam: REGULAR RHYTHM, +S1, +S2 - GI/Abdominal Exam GI & Abdominal Exam: Soft, Normal Bowel Sounds - Extremities Exam Extremities Exam: Full ROM, Normal Capillary Refill, Normal Inspection. absent : Joint Swelling, Pedal Edema - Back Exam Back Exam: NORMAL INSPECTION - Neurological Exam Neurological Exam: Alert, Awake, CN II-XII Intact, Normal Gait, Oriented x3 Assessment and Plan - Assessment and Plan (Free Text) Assessment: DIABETIC FOOT ULCER. Plan: FOR IV ANTIBIOTICS.
--- NOTE | 2017-11-22 13:45 | CP.PCM.PN ---
Subjective - Date & Time of Evaluation Date of Evaluation: 11/22/17 Time of Evaluation: 09:30 - Subjective Subjective: Podiatry Progress note - Dr. Manriquez 62 year old male patient was seen at bedside 2 days s/p right 5th digit amputation. Patient is seen resting comfortably in bed, in NAD, and AAOx3. Patient reports of no acute overnight events. Dressing to patient's right foot is slipping off. Denies any n/v/f/c/sob/cp. Objective - Vital Signs/Intake and Output Vital Signs (last 24 hours): Temp Pulse Resp BP Pulse Ox 97.8 F 90 20 136/79 96 11/22/17 09:21 11/22/17 09:21 11/22/17 09:21 11/22/17 09:21 11/22/17 09:21 Intake and Output: 11/22/17 11/22/17 06:59 18:59 Intake Total 980 Balance 980 - Medications Medications: Current Medications Acetaminophen (Tylenol 325mg Tab) 650 mg PO Q6 PRN PRN Reason: Pain, Mild (1-3) Amantadine HCl (Amantadine 100 Mg Cap) 100 mg PO DAILY [facility] Last Admin: 11/22/17 09:22 Dose: 100 mg Amlodipine Besylate (Norvasc) 10 mg PO DAILY [facility] Last Admin: 11/22/17 09:28 Dose: 10 mg Aspirin (Ecotrin) 81 mg PO DAILY [facility] Last Admin: 11/22/17 09:28 Dose: 81 mg Enoxaparin Sodium (Lovenox) 30 mg SC 1000,2200 [facility] Last Admin: 11/22/17 09:28 Dose: 30 mg Ergocalciferol (Drisdol 50,000 Intl Units Cap) 1 cap PO Q7D [facility] Last Admin: 11/17/17 09:59 Dose: Not Given Home Med (Patient's Own Medication) 1 tab PO DAILY [facility] Last Admin: 11/22/17 09:22 Dose: 1 tab Aztreonam 1 gm/ Sodium (Chloride) 100 mls @ 200 mls/hr IVPB Q8H [facility] Last Admin: 11/22/17 09:32 Dose: 200 mls/hr Clindamycin Phosphate 600 mg/ (Sodium Chloride) 54 mls @ 100 mls/hr IVPB Q8H [facility] Last Admin: 11/22/17 08:00 Dose: 100 mls/hr Insulin Aspart (Novolog) 0 unit SC ACHS [facility] PRN Reason: Protocol Last Admin: 11/22/17 11:30 Dose: 1 unit Losartan Potassium (Cozaar) 100 mg PO DAILY [facility] Last Admin: 11/22/17 09:28 Dose: 100 mg Metoprolol Tartrate (Lopressor) 50 mg PO BID [facility] Last Admin: 11/22/17 09:31 Dose: 50 mg Oxycodone/Acetaminophen (Percocet 5/325 Mg Tab) 1 tab PO Q6H PRN PRN Reason: Pain, moderate (4-7) Stop: 11/23/17 08:57 Oxycodone/Acetaminophen (Percocet 5/325 Mg Tab) 2 tab PO Q6H PRN PRN Reason: Pain, severe (8-10) Stop: 11/23/17 08:57 Pantoprazole Sodium (Protonix Ec Tab) 40 mg PO DAILY [facility] Last Admin: 11/22/17 09:36 Dose: 40 mg Rosuvastatin Calcium (Crestor) 5 mg PO HS [facility] Last Admin: 11/21/17 21:27 Dose: 5 mg - Labs Labs: 11/18/17 07:47 11/18/17 07:47 PT 11.8 SECONDS (9.7-12.2) 11/19/17 21:16 INR 1.1 11/19/17 21:16 APTT 33 SECONDS (21-34) 11/19/17 21:16 - Constitutional Appears: Well, Non-toxic, No Acute Distress - Extremities Exam Extremities Exam: absent: Calf Tenderness Additional comments: Lower extremity focused exam: VASC: DP and PT pulses are non-palpable. CFT > 4 seconds to all digits, Skin temperature warm to cool from proximal to distal. mild non-pitting edema noted at the distal aspect of the foot on the right DERM: surgical site noted to the lateral aspect of the right foot, suture intact , no signs of dehiscens noted, no malodor, no purulence, no drainage, no acute signs of infection noted. NEURO: Epicritic and protective sensation mildly diminished ORTHO: mild tenderness on palpation of the right foot surgical si - Neurological Exam Neurological Exam: Alert, Awake, Oriented x3 - Psychiatric Exam Psychiatric exam: Normal Affect, Normal Mood Assessment and Plan - Assessment and Plan (Free Text) Assessment: 62 year old male 2 days s/p right 5th digit amputation Plan: -Patient seen and evaluated with attending Dr. Manriquez -Labs, vitals and charts reviewed - afebrile -post op xrays IMPRESSION: Interval postsurgical changes as above. Old healed fracture deformity 5th metatarsal. No periosteal reaction or cortical interruption to suggest osteomyelitis. Nonspecific soft tissue swelling. No gas -forming cellulitis appreciated -Right foot dressed with xeroform, DSD, and light ZOILA -Dressing to keep c/d/i. Will change Friday prior to discharge. -Patient to cont IV abx per ID -PWB to heel in surgical shoe -Rx given for standard cane -Podiatry to follow patient while in-house -Upon d/c patient to follow up with Dr. Manriquez
[2017-11-23] MEDS: Aztreonam 1 GM in Sodium Chloride 0.9% 100 ML IVPB SCH ×3 (01:35→17:32)
[2017-11-23 08:07] LABS: BASO % 0.5 % (0.0-2.0); EOS # 0.1 K/uL (0.0-0.7); EOS % 1.5 % (0.0-4.0); HEMOGLOBIN 13.1 g/dL (12.0-18.0); LYMPH # 1.7 K/uL (1.0-4.3); LYMPH % 25.2 % (20.0-40.0); MEAN CELL VOLUME 104.3 fL (80.0-94.0); MEAN CORPUSCULAR HEMOGLOBIN 37.3 pg (27.0-31.0); MEAN CORPUSCULAR HGB CONC 35.8 g/dL (33.0-37.0); MEAN PLATELET VOLUME 7.5 fL (7.2-11.7); MONO # 0.8 K/uL (0.0-0.8); MONO % 11.2 % (0.0-10.0); NEUT # 4.2 K/uL (1.8-7.0); NEUT % 61.6 % (50.0-75.0); NRBC % 0.1 % (0.0-2.0); RBC 3.52 Mil/uL (4.40-5.90); RED CELL DISTRIBUTION WIDTH 11.9 % (11.5-14.5); WHITE BLOOD COUNT 6.8 K/uL (4.8-10.8)
[2017-11-23] MEDS: (Novolog) Insulin Aspart, Recombinant 100 u/ml 10 ml vial SC SCH ×4 (08:34→21:15)
[2017-11-23 08:47] LABS: BLOOD UREA NITROGEN 14 mg/dL (9-20); CALCIUM 9.3 mg/dl (8.6-10.4); GFR AFRICAN-AMERICAN > 60; GFR NON-AFRICAN AMERICAN > 60
[2017-11-23] MEDS: Pantoprazole 40 mg EC Tab PO SCH (10:31)
[2017-11-23] MEDS: Enoxaparin 30 mg Syringe SC SCH ×2 (10:32→21:16)
[2017-11-23] MEDS: TRIUMEQ PO SCH (10:32)
[2017-11-23] MEDS: Ammonium Lactate 12% Lotion (225 g) EXT SCH (10:32)
--- NOTE | 2017-11-23 15:37 | CP.PCM.PN ---
Subjective - Date & Time of Evaluation Date of Evaluation: 11/23/17 Time of Evaluation: 10:00 - Subjective Subjective: amp site dry no fever no pus Objective - Vital Signs/Intake and Output Vital Signs (last 24 hours): Temp Pulse Resp BP Pulse Ox 98.5 F 97 H 20 142/87 97 11/23/17 09:44 11/23/17 09:44 11/23/17 09:44 11/23/17 09:44 11/23/17 09:44 Intake and Output: 11/23/17 11/23/17 06:59 18:59 Intake Total 450 1130 Balance 450 1130 - Medications Medications: Current Medications Acetaminophen (Tylenol 325mg Tab) 650 mg PO Q6 PRN PRN Reason: Pain, Mild (1-3) Amantadine HCl (Amantadine 100 Mg Cap) 100 mg PO DAILY [facility] Last Admin: 11/23/17 10:31 Dose: 100 mg Amlodipine Besylate (Norvasc) 10 mg PO DAILY [facility] Last Admin: 11/23/17 10:31 Dose: 10 mg Aspirin (Ecotrin) 81 mg PO DAILY [facility] Last Admin: 11/23/17 10:31 Dose: 81 mg Enoxaparin Sodium (Lovenox) 30 mg SC 1000,2200 [facility] Last Admin: 11/23/17 10:32 Dose: 30 mg Ergocalciferol (Drisdol 50,000 Intl Units Cap) 1 cap PO Q7D [facility] Last Admin: 11/17/17 09:59 Dose: Not Given Home Med (Patient's Own Medication) 1 tab PO DAILY [facility] Last Admin: 11/23/17 10:32 Dose: 1 tab Aztreonam 1 gm/ Sodium (Chloride) 100 mls @ 200 mls/hr IVPB Q8H [facility] Last Admin: 11/23/17 10:32 Dose: 200 mls/hr Clindamycin Phosphate 600 mg/ (Sodium Chloride) 54 mls @ 100 mls/hr IVPB Q8H [facility] Last Admin: 11/23/17 08:34 Dose: 100 mls/hr Insulin Aspart (Novolog) 0 unit SC ACHS [facility] PRN Reason: Protocol Last Admin: 11/23/17 12:30 Dose: 2 unit Lactic Acid (Lac-Hydrin 12% Lotion (225 G)) 1 gm EXT DAILY [facility] Last Admin: 11/23/17 10:32 Dose: 1 applic Losartan Potassium (Cozaar) 100 mg PO DAILY [facility] Last Admin: 11/23/17 10:31 Dose: 100 mg Metoprolol Tartrate (Lopressor) 50 mg PO BID [facility] Last Admin: 11/23/17 10:31 Dose: 50 mg Pantoprazole Sodium (Protonix Ec Tab) 40 mg PO DAILY [facility] Last Admin: 11/23/17 10:31 Dose: 40 mg Rosuvastatin Calcium (Crestor) 5 mg PO HS [facility] Last Admin: 11/22/17 21:18 Dose: 5 mg - Labs Labs: 11/23/17 07:57 11/23/17 07:57 PT 11.8 SECONDS (9.7-12.2) 11/19/17 21:16 INR 1.1 11/19/17 21:16 APTT 33 SECONDS (21-34) 11/19/17 21:16 - Constitutional Appears: Non-toxic, Chronically Ill - Head Exam Head Exam: NORMOCEPHALIC - Eye Exam Eye Exam: PERRL - ENT Exam ENT Exam: Mucous Membranes Dry - Neck Exam Neck Exam: absent: Lymphadenopathy - Respiratory Exam Respiratory Exam: Decreased Breath Sounds - Cardiovascular Exam Cardiovascular Exam: REGULAR RHYTHM - GI/Abdominal Exam GI & Abdominal Exam: Distended - Rectal Exam Rectal Exam: Deferred - Exam Exam: NORMAL INSPECTION - Extremities Exam Extremities Exam: Pedal Edema, Tenderness - Back Exam Back Exam: absent: CVA tenderness (L), CVA tenderness (R) Assessment and Plan (1) Cellulitis Status: Acute (2) Diabetic foot ulcer Status: Acute (3) CAD (coronary artery disease) Status: Acute (4) CAD (coronary artery disease) of bypass graft Status: Acute (5) PVD (peripheral vascular disease) Status: Acute (6) PVD (peripheral vascular disease) with claudication Status: Acute (7) PVD (posterior vitreous detachment) Status: Acute - Assessment and Plan (Free Text) Assessment: possible d.c on PO cipro /clinda for 5 days if ok with dr dmitry goddard
--- NOTE | 2017-11-23 18:31 | CP.PCM.PN ---
Subjective - Date & Time of Evaluation Date of Evaluation: 11/23/17 Time of Evaluation: 11:20 - Subjective Subjective: CONDITION SAME. AFEBRILE. Objective - Vital Signs/Intake and Output Vital Signs (last 24 hours): Temp Pulse Resp BP Pulse Ox 98.6 F 80 20 148/83 96 11/23/17 16:00 11/23/17 16:00 11/23/17 16:00 11/23/17 16:00 11/23/17 16:00 Intake and Output: 11/23/17 11/23/17 06:59 18:59 Intake Total 450 1130 Balance 450 1130 - Medications Medications: Current Medications Acetaminophen (Tylenol 325mg Tab) 650 mg PO Q6 PRN PRN Reason: Pain, Mild (1-3) Amantadine HCl (Amantadine 100 Mg Cap) 100 mg PO DAILY [facility] Last Admin: 11/23/17 10:31 Dose: 100 mg Amlodipine Besylate (Norvasc) 10 mg PO DAILY [facility] Last Admin: 11/23/17 10:31 Dose: 10 mg Aspirin (Ecotrin) 81 mg PO DAILY [facility] Last Admin: 11/23/17 10:31 Dose: 81 mg Enoxaparin Sodium (Lovenox) 30 mg SC 1000,2200 [facility] Last Admin: 11/23/17 10:32 Dose: 30 mg Ergocalciferol (Drisdol 50,000 Intl Units Cap) 1 cap PO Q7D [facility] Last Admin: 11/17/17 09:59 Dose: Not Given Home Med (Patient's Own Medication) 1 tab PO DAILY [facility] Last Admin: 11/23/17 10:32 Dose: 1 tab Aztreonam 1 gm/ Sodium (Chloride) 100 mls @ 200 mls/hr IVPB Q8H [facility] Last Admin: 11/23/17 17:32 Dose: 200 mls/hr Clindamycin Phosphate 600 mg/ (Sodium Chloride) 54 mls @ 100 mls/hr IVPB Q8H [facility] Last Admin: 11/23/17 16:30 Dose: 100 mls/hr Insulin Aspart (Novolog) 0 unit SC ACHS [facility] PRN Reason: Protocol Last Admin: 11/23/17 16:30 Dose: 2 unit Lactic Acid (Lac-Hydrin 12% Lotion (225 G)) 1 gm EXT DAILY [facility] Last Admin: 11/23/17 10:32 Dose: 1 applic Losartan Potassium (Cozaar) 100 mg PO DAILY [facility] Last Admin: 11/23/17 10:31 Dose: 100 mg Metoprolol Tartrate (Lopressor) 50 mg PO BID [facility] Last Admin: 11/23/17 17:31 Dose: 50 mg Pantoprazole Sodium (Protonix Ec Tab) 40 mg PO DAILY [facility] Last Admin: 11/23/17 10:31 Dose: 40 mg Rosuvastatin Calcium (Crestor) 5 mg PO HS [facility] Last Admin: 11/22/17 21:18 Dose: 5 mg - Labs Labs: 11/23/17 07:57 11/23/17 07:57 PT 11.8 SECONDS (9.7-12.2) 11/19/17 21:16 INR 1.1 11/19/17 21:16 APTT 33 SECONDS (21-34) 11/19/17 21:16 - Constitutional Appears: No Acute Distress, Chronically Ill - Eye Exam Eye Exam: PERRL - ENT Exam ENT Exam: Mucous Membranes Moist - Neck Exam Neck Exam: Full ROM, Normal Inspection. absent: Lymphadenopathy - Respiratory Exam Respiratory Exam: Clear to Ausculation Bilateral, NORMAL BREATHING PATTERN - Cardiovascular Exam Cardiovascular Exam: REGULAR RHYTHM, +S1, +S2. absent: Murmur - GI/Abdominal Exam GI & Abdominal Exam: Soft, Normal Bowel Sounds. absent: Tenderness - Extremities Exam Extremities Exam: Full ROM, Normal Capillary Refill, Normal Inspection. absent : Joint Swelling, Pedal Edema - Neurological Exam Neurological Exam: Alert, Awake, CN II-XII Intact, Normal Gait, Oriented x3 - Psychiatric Exam Psychiatric exam: Normal Affect, Normal Mood Assessment and Plan - Assessment and Plan (Free Text) Assessment: SAME. Plan: FOR IV ANTIBIOTICS.
[2017-11-24] MEDS: Aztreonam 1 GM in Sodium Chloride 0.9% 100 ML IVPB SCH ×2 (01:05→09:49)
--- NOTE | 2017-11-24 09:13 | CP.PCM.PN ---
Subjective - Date & Time of Evaluation Date of Evaluation: 11/24/17 Time of Evaluation: 09:13 - Subjective Subjective: Podiatry Progress note - Dr. Manriquez 62 year old male patient was seen at bedside, with attending, Dr. Manriquez 4 days s /p right 5th digit amputation. Patient is seen resting comfortably in bed, in NAD, and AAOx3. Patient reports of no acute overnight events. Dressing c/d/i. Denies any n/v/f/c/sob/cp. Objective - Vital Signs/Intake and Output Vital Signs (last 24 hours): Temp Pulse Resp BP Pulse Ox 98.8 F 88 20 141/88 96 11/24/17 08:23 11/24/17 08:23 11/24/17 08:23 11/24/17 08:23 11/24/17 08:23 Intake and Output: 11/24/17 11/24/17 06:59 18:59 Intake Total 660 Balance 660 - Medications Medications: Current Medications Acetaminophen (Tylenol 325mg Tab) 650 mg PO Q6 PRN PRN Reason: Pain, Mild (1-3) Amantadine HCl (Amantadine 100 Mg Cap) 100 mg PO DAILY [facility] Last Admin: 11/23/17 10:31 Dose: 100 mg Amlodipine Besylate (Norvasc) 10 mg PO DAILY [facility] Last Admin: 11/23/17 10:31 Dose: 10 mg Aspirin (Ecotrin) 81 mg PO DAILY [facility] Last Admin: 11/23/17 10:31 Dose: 81 mg Enoxaparin Sodium (Lovenox) 30 mg SC 1000,2200 [facility] Last Admin: 11/23/17 21:16 Dose: 30 mg Ergocalciferol (Drisdol 50,000 Intl Units Cap) 1 cap PO Q7D [facility] Last Admin: 11/17/17 09:59 Dose: Not Given Home Med (Patient's Own Medication) 1 tab PO DAILY [facility] Last Admin: 11/23/17 10:32 Dose: 1 tab Aztreonam 1 gm/ Sodium (Chloride) 100 mls @ 200 mls/hr IVPB Q8H [facility] Last Admin: 11/24/17 01:05 Dose: 200 mls/hr Clindamycin Phosphate 600 mg/ (Sodium Chloride) 54 mls @ 100 mls/hr IVPB Q8H [facility] Last Admin: 11/23/17 23:56 Dose: 100 mls/hr Insulin Aspart (Novolog) 0 unit SC ACHS [facility] PRN Reason: Protocol Last Admin: 11/23/17 21:15 Dose: Not Given Lactic Acid (Lac-Hydrin 12% Lotion (225 G)) 1 gm EXT DAILY [facility] Last Admin: 11/23/17 10:32 Dose: 1 applic Losartan Potassium (Cozaar) 100 mg PO DAILY [facility] Last Admin: 11/23/17 10:31 Dose: 100 mg Metoprolol Tartrate (Lopressor) 50 mg PO BID [facility] Last Admin: 11/23/17 17:31 Dose: 50 mg Pantoprazole Sodium (Protonix Ec Tab) 40 mg PO DAILY [facility] Last Admin: 11/23/17 10:31 Dose: 40 mg Rosuvastatin Calcium (Crestor) 5 mg PO HS [facility] Last Admin: 11/23/17 21:15 Dose: 5 mg - Labs Labs: 11/23/17 07:57 11/23/17 07:57 PT 11.8 SECONDS (9.7-12.2) 11/19/17 21:16 INR 1.1 11/19/17 21:16 APTT 33 SECONDS (21-34) 11/19/17 21:16 - Constitutional Appears: Well, Non-toxic - Extremities Exam Additional comments: Lower extremity focused exam: VASC: DP and PT pulses are non-palpable. CFT > 4 seconds to all digits, Skin temperature warm to cool from proximal to distal. mild non-pitting edema noted at the distal aspect of the foot on the right DERM: surgical site noted to the lateral aspect of the right foot, suture intact , no signs of dehiscence noted, dried sanguineous drainage, noted no malodor, no purulence, no drainage, no acute signs of infection noted. NEURO: Epicritic and protective sensation mildly diminished ORTHO: mild tenderness on palpation of the right foot surgical site - Neurological Exam Neurological Exam: Alert, Awake, Oriented x3 - Psychiatric Exam Psychiatric exam: Normal Affect, Normal Mood Assessment and Plan - Assessment and Plan (Free Text) Assessment: 62 year old male 4 days s/p right 5th digit amputation Plan: -Patient seen and evaluated with attending Dr. Manriquez -Labs, vitals and charts reviewed - afebrile -xrays IMPRESSION: Interval postsurgical changes as above. Old healed fracture deformity 5th metatarsal. No periosteal reaction or cortical interruption to suggest osteomyelitis. Nonspecific soft tissue swelling. No gas-forming cellulitis appreciated -Right foot dressed with xeroform, DSD, and light ZOILA -Patient educated on dressing changes but will keep dressing c/d/i until outpatient follow up with Dr. Manriquez -Patient to cont abx per ID -PWB to heel in surgical shoe -Rx given for standard cane -Podiatry to follow patient while in-house -Upon d/c patient to follow up with Dr. Manriquez
[2017-11-24] MEDS: (Novolog) Insulin Aspart, Recombinant 100 u/ml 10 ml vial SC SCH ×2 (09:24→13:04)
[2017-11-24] MEDS: Ergocalciferol 50,000 Intl Units Cap PO SCH (09:26)
[2017-11-24] MEDS: Enoxaparin 30 mg Syringe SC SCH ×2 (09:27→09:43)
[2017-11-24] MEDS: TRIUMEQ PO SCH (09:28)
[2017-11-24] MEDS: Pantoprazole 40 mg EC Tab PO SCH (09:33)
--- NOTE | 2017-11-24 11:44 | CP.PCM.PN ---
Subjective - Date & Time of Evaluation Date of Evaluation: 11/24/17 Time of Evaluation: 08:00 - Subjective Subjective: improving no drainage Objective - Vital Signs/Intake and Output Vital Signs (last 24 hours): Temp Pulse Resp BP Pulse Ox 98.8 F 88 20 141/88 96 11/24/17 08:23 11/24/17 08:23 11/24/17 08:23 11/24/17 08:23 11/24/17 08:23 Intake and Output: 11/24/17 11/24/17 06:59 18:59 Intake Total 660 Balance 660 - Medications Medications: Current Medications Acetaminophen (Tylenol 325mg Tab) 650 mg PO Q6 PRN PRN Reason: Pain, Mild (1-3) Amantadine HCl (Amantadine 100 Mg Cap) 100 mg PO DAILY [facility] Last Admin: 11/24/17 09:26 Dose: 100 mg Amlodipine Besylate (Norvasc) 10 mg PO DAILY [facility] Last Admin: 11/24/17 09:31 Dose: Not Given Aspirin (Ecotrin) 81 mg PO DAILY [facility] Last Admin: 11/24/17 09:26 Dose: 81 mg Enoxaparin Sodium (Lovenox) 30 mg SC 1000,2200 [facility] Last Admin: 11/24/17 09:43 Dose: Not Given Ergocalciferol (Drisdol 50,000 Intl Units Cap) 1 cap PO Q7D [facility] Last Admin: 11/24/17 09:26 Dose: 1 cap Home Med (Patient's Own Medication) 1 tab PO DAILY [facility] Last Admin: 11/24/17 09:28 Dose: 1 tab Aztreonam 1 gm/ Sodium (Chloride) 100 mls @ 200 mls/hr IVPB Q8H [facility] Last Admin: 11/24/17 09:49 Dose: 200 mls/hr Clindamycin Phosphate 600 mg/ (Sodium Chloride) 54 mls @ 100 mls/hr IVPB Q8H [facility] Last Admin: 11/24/17 09:21 Dose: 100 mls/hr Insulin Aspart (Novolog) 0 unit SC ACHS [facility] PRN Reason: Protocol Last Admin: 11/24/17 09:24 Dose: 1 unit Lactic Acid (Lac-Hydrin 12% Lotion (225 G)) 1 gm EXT DAILY [facility] Last Admin: 11/23/17 10:32 Dose: 1 applic Losartan Potassium (Cozaar) 100 mg PO DAILY [facility] Last Admin: 11/24/17 09:30 Dose: Not Given Metoprolol Tartrate (Lopressor) 50 mg PO BID [facility] Last Admin: 11/24/17 09:26 Dose: 50 mg Pantoprazole Sodium (Protonix Ec Tab) 40 mg PO DAILY [facility] Last Admin: 11/24/17 09:33 Dose: Not Given Rosuvastatin Calcium (Crestor) 5 mg PO HS [facility] Last Admin: 11/23/17 21:15 Dose: 5 mg - Labs Labs: 11/23/17 07:57 11/23/17 07:57 PT 11.8 SECONDS (9.7-12.2) 11/19/17 21:16 INR 1.1 11/19/17 21:16 APTT 33 SECONDS (21-34) 11/19/17 21:16 - Constitutional Appears: Non-toxic - Head Exam Head Exam: NORMOCEPHALIC - Eye Exam Eye Exam: PERRL - ENT Exam ENT Exam: Mucous Membranes Dry - Neck Exam Neck Exam: absent: Lymphadenopathy - Respiratory Exam Respiratory Exam: Decreased Breath Sounds - Cardiovascular Exam Cardiovascular Exam: REGULAR RHYTHM - GI/Abdominal Exam GI & Abdominal Exam: Distended, Soft - Rectal Exam Rectal Exam: Deferred Assessment and Plan (1) Cellulitis Status: Acute (2) Diabetic foot ulcer Status: Acute (3) CAD (coronary artery disease) Status: Acute (4) CAD (coronary artery disease) of bypass graft Status: Acute (5) PVD (peripheral vascular disease) Status: Acute (6) PVD (peripheral vascular disease) with claudication Status: Acute (7) PVD (posterior vitreous detachment) Status: Acute - Assessment and Plan (Free Text) Assessment: d/c on po rx
--- NOTE | 2017-11-24 12:27 | CP.PCM.PN ---
Subjective - Date & Time of Evaluation Date of Evaluation: 11/24/17 Time of Evaluation: 12:25 - Subjective Subjective: CONDITION SAME. AFEBRILE. Objective - Vital Signs/Intake and Output Vital Signs (last 24 hours): Temp Pulse Resp BP Pulse Ox 98.8 F 88 20 141/88 96 11/24/17 08:23 11/24/17 08:23 11/24/17 08:23 11/24/17 08:23 11/24/17 08:23 Intake and Output: 11/24/17 11/24/17 06:59 18:59 Intake Total 660 Balance 660 - Medications Medications: Current Medications Acetaminophen (Tylenol 325mg Tab) 650 mg PO Q6 PRN PRN Reason: Pain, Mild (1-3) Amantadine HCl (Amantadine 100 Mg Cap) 100 mg PO DAILY [facility] Last Admin: 11/24/17 09:26 Dose: 100 mg Amlodipine Besylate (Norvasc) 10 mg PO DAILY [facility] Last Admin: 11/24/17 09:31 Dose: Not Given Aspirin (Ecotrin) 81 mg PO DAILY [facility] Last Admin: 11/24/17 09:26 Dose: 81 mg Enoxaparin Sodium (Lovenox) 30 mg SC 1000,2200 [facility] Last Admin: 11/24/17 09:43 Dose: Not Given Ergocalciferol (Drisdol 50,000 Intl Units Cap) 1 cap PO Q7D [facility] Last Admin: 11/24/17 09:26 Dose: 1 cap Home Med (Patient's Own Medication) 1 tab PO DAILY [facility] Last Admin: 11/24/17 09:28 Dose: 1 tab Aztreonam 1 gm/ Sodium (Chloride) 100 mls @ 200 mls/hr IVPB Q8H [facility] Last Admin: 11/24/17 09:49 Dose: 200 mls/hr Clindamycin Phosphate 600 mg/ (Sodium Chloride) 54 mls @ 100 mls/hr IVPB Q8H [facility] Last Admin: 11/24/17 09:21 Dose: 100 mls/hr Insulin Aspart (Novolog) 0 unit SC ACHS [facility] PRN Reason: Protocol Last Admin: 11/24/17 09:24 Dose: 1 unit Lactic Acid (Lac-Hydrin 12% Lotion (225 G)) 1 gm EXT DAILY [facility] Last Admin: 11/23/17 10:32 Dose: 1 applic Losartan Potassium (Cozaar) 100 mg PO DAILY [facility] Last Admin: 11/24/17 09:30 Dose: Not Given Metoprolol Tartrate (Lopressor) 50 mg PO BID [facility] Last Admin: 11/24/17 09:26 Dose: 50 mg Pantoprazole Sodium (Protonix Ec Tab) 40 mg PO DAILY [facility] Last Admin: 11/24/17 09:33 Dose: Not Given Rosuvastatin Calcium (Crestor) 5 mg PO HS [facility] Last Admin: 11/23/17 21:15 Dose: 5 mg - Labs Labs: 11/23/17 07:57 11/23/17 07:57 PT 11.8 SECONDS (9.7-12.2) 11/19/17 21:16 INR 1.1 11/19/17 21:16 APTT 33 SECONDS (21-34) 11/19/17 21:16 - Constitutional Appears: No Acute Distress, Chronically Ill - Eye Exam Eye Exam: Normal appearance, PERRL - ENT Exam ENT Exam: Mucous Membranes Moist - Neck Exam Neck Exam: Full ROM, Normal Inspection. absent: Lymphadenopathy - Respiratory Exam Respiratory Exam: Clear to Ausculation Bilateral, NORMAL BREATHING PATTERN - Cardiovascular Exam Cardiovascular Exam: REGULAR RHYTHM, +S1, +S2. absent: Murmur - GI/Abdominal Exam GI & Abdominal Exam: Soft, Normal Bowel Sounds. absent: Tenderness - Back Exam Back Exam: NORMAL INSPECTION - Neurological Exam Neurological Exam: Alert, Awake, CN II-XII Intact, Normal Gait, Oriented x3 Assessment and Plan - Assessment and Plan (Free Text) Assessment: S/P AMPUTATION LITTLE TOE. GANGRENE. DM. Plan: FOR D/C HOME. F/U DR. MCCOLLUM AND DR. PARIS.
[2017-11-24] MEDS: Ammonium Lactate 12% Lotion (225 g) EXT SCH (13:05)
[2017-11-24] MEDS ORDERED: Influenza Vaccine 60 mcg/0.5 mL SYR (4YR UP) IM ONE (13:30)
[2017-11-24] MEDS ORDERED: Pneumococcal 23-Valent Vaccine IM ONE (13:30)
[2017-11-24 16:39] VITALS: BP 142/88; PULSE 80; TEMP 98.1; O2SAT 98
--- NOTE | 2017-12-03 07:12 | DS ---
HISTORY OF PRESENT ILLNESS: This is a 62-year-old black male who came to the emergency room. The patient was sent to the emergency room by Dr. Manriquez. The patient has chronic infection with diabetic ulcer on the right fifth toe. The patient denies having any pain. The patient has mild discharge. The patient also has possible gangrene in the toe. PAST MEDICAL HISTORY: History of diabetes and HIV positive. PHYSICAL EXAMINATION: GENERAL: On admission, the patient was awake, alert, and comfortable with normal vital signs. HEART AND LUNGS: Within normal limits. EXTREMITIES: Right foot fifth toe was infected with cellulitis. Mild discharge was present. HOSPITAL COURSE: During the hospital course, Dr. Manriquez was consulted. The patient was operated and amputation of right fifth toe was done. Dr. Peng was also consulted who gave IV antibiotics. The patient's diabetes was controlled. The patient was discharged home with local dressing and followup with Dr. Peng and Dr. Manriquez. Antibiotics by mouth. FINAL DIAGNOSES: Right foot fifth toe diabetic ulcer and gangrene. Diabetes mellitus. Marcia Mccarthy MD
== END 2017-11-24 17:20 | disposition home or self-care (01) | DRG 970 ==
LOC: C.ER 07:59 → C.9E 09:32 → C.3T 11:38
PROVIDERS: ADMIT Internal Medicine; ATTEND Internal Medicine
PROC: 047P3ZZ Dilation of Right Anterior Tibial Artery, Percutaneous Approach (ICD-10-PCS; 2017-11-17)
PROC: 047T3ZZ Dilation of Right Peroneal Artery, Percutaneous Approach (ICD-10-PCS; 2017-11-17)
PROC: 04CP3ZZ Extirpation of Matter from Right Anterior Tibial Artery, Percutaneous Approach (ICD-10-PCS; 2017-11-17)
PROC: B41DYZZ Fluoroscopy of Aorta and Bilateral Lower Extremity Arteries using Other Contrast (ICD-10-PCS; 2017-11-17)
PROC: 0Y6X0Z0 Detachment at Right 5th Toe, Complete, Open Approach (ICD-10-PCS; principal; 2017-11-20 07:45)
DX: B20 Human immunodeficiency virus [HIV] disease (principal); E11.40 Type 2 diabetes mellitus with diabetic neuropathy, unspecified; I70.268 Atherosclerosis of native arteries of extremities with gangrene, other extremity; E11.52 Type 2 diabetes mellitus with diabetic peripheral angiopathy with gangrene; E11.621 Type 2 diabetes mellitus with foot ulcer; L03.115 Cellulitis of right lower limb; H43.819 Vitreous degeneration, unspecified eye; E78.00 Pure hypercholesterolemia, unspecified; I10 Essential (primary) hypertension; Z95.1 Presence of aortocoronary bypass graft; Z88.0 Allergy status to penicillin; Z85.46 Personal history of malignant neoplasm of prostate; B19.20 Unspecified viral hepatitis C without hepatic coma; I25.10 Atherosclerotic heart disease of native coronary artery without angina pectoris; B96.5 Pseudomonas (aeruginosa) (mallei) (pseudomallei) as the cause of diseases classified elsewhere; Z79.4 Long term (current) use of insulin; L97.519 Non-pressure chronic ulcer of other part of right foot with unspecified severity